=== PATIENT | female | born 1990 | race Caucasian/White ===

== ENCOUNTER → 2017-03-26 | Outpatient (CLI) | payer BC ==
[2017-03-26 09:58] LABS: ESTIMATED AVERAGE GLUCOSE 146 mg/dl; HA1C FLAG Normal (Normal)
[2017-03-26 10:00] LABS: THYROID STIMULATING HORMONE 2.11 uIu/ml (0.300-4.500)
--- NOTE | 2017-04-10 13:28 | CODING QUERY MEDICAL NECESSITY ---
SUPPORTING DIAGNOSIS NEEDED Dr. Trinh, A supporting diagnosis is required for the test/procedure performed on this patient in order for us to be reimbursed by the patient's insurance. Please provide a supporting diagnosis for the following test/procedure listed below next to the test name along with your signature. *If there is no additional diagnosis for this patient that would support the following test/procedure please document that below next to the test/procedure. Test(s)/Procedure(s) that require a supporting diagnosis: * ([id number]) VITAMIN D ASSAY DIAGNOSIS: DATE OF SERVICE: 03/26/17 Provider Signature: Date: Thank you Man [facility] Information Management Once completed, please kindly fax back to [phone] For questions please call [phone]
== END | disposition home or self-care (01) ==
LOC: C.LAB1850 08:05
PROVIDERS: ATTEND Internal Medicine Endocrinology, Diabetes & Metabolism
DX: E03.9 Hypothyroidism, unspecified (principal); R20.2 Paresthesia of skin; E10.9 Type 1 diabetes mellitus without complications

== ENCOUNTER → 2017-06-25 | Outpatient (CLI) | payer BC ==
[~2017-06-25] MED LIST: INSPMPHMLG; LEVO112T4 PO; MISC-836; MTR600X PO; OXYC-57 PO; PRENTAB26 PO
[2017-06-25 10:17] LABS: HEMOGLOBIN A1C 6.2 % (4.5-5.6)
== END | disposition home or self-care (01) ==
LOC: C.LAB1850 07:48
PROVIDERS: ATTEND Internal Medicine
DX: E03.9 Hypothyroidism, unspecified (principal); E10.9 Type 1 diabetes mellitus without complications; Z33.1 Pregnant state, incidental

== ENCOUNTER → 2017-07-17 | Outpatient (CLI) | payer BC ==
[2017-07-17 13:19] LABS: BASO % 0.4 %; BASO ABS # 0.03 K/uL (0-0.2); EOS % 1.7 %; EOS ABS # 0.14 K/uL (0-0.5); HEMATOCRIT 38.4 % (37-47); HEMOGLOBIN 13.6 g/dL (12.0-16.0); IG# 0.03 K/uL (0.00-0.02); LYMPH % 15.6 %; LYMPH ABS # 1.32 K/uL (1.2-3.4); MEAN CELL VOLUME 87.3 fL (80-100); MEAN CORPUSCULAR HEMOGLOBIN 30.9 pg (25-34); MEAN CORPUSCULAR HGB CONC 35.4 g/dl (32-36); MEAN PLATELET VOLUME 11.5 fL (7.4-10.4); MONO % 8.8 %; MONO ABS # 0.75 K/uL (0.11-0.59); NEUT % 73.1 %; NEUT ABS # 6.21 K/uL (1.4-6.5); PLATELET COUNT 256 K/uL (130-400); RED CELL DISTRIBUTION WIDTH CV 12.2 % (11.5-14.5); RED CELL DISTRIBUTION WIDTH SD 39.3 fL (36.4-46.3); WHITE BLOOD COUNT 8.48 K/uL (4.8-10.8)
== END | disposition home or self-care (01) ==
LOC: C.LAB1850 12:11
PROVIDERS: ATTEND Obstetrics & Gynecology
DX: O24.011 Pre-existing type 1 diabetes mellitus, in pregnancy, first trimester (principal)

== ENCOUNTER → 2017-08-14 | Outpatient (CLI) | payer BC ==
[2017-08-14 12:22] LABS: HEMOGLOBIN A1C 5.7 % (4.5-5.6)
== END | disposition home or self-care (01) ==
LOC: C.LAB1850 10:15
PROVIDERS: ATTEND Internal Medicine Endocrinology, Diabetes & Metabolism
DX: O99.281 Endocrine, nutritional and metabolic diseases complicating pregnancy, first trimester (principal); E03.9 Hypothyroidism, unspecified; O24.011 Pre-existing type 1 diabetes mellitus, in pregnancy, first trimester

== ENCOUNTER → 2017-08-18 | Outpatient (CLI) | payer BC | END | disposition home or self-care (01) | LOC: C.LAB1850 08:31 | PROVIDERS: ATTEND Obstetrics & Gynecology | DX: O24.912 Unspecified diabetes mellitus in pregnancy, second trimester (principal); Z3A.00 Weeks of gestation of pregnancy not specified ==

== ENCOUNTER → 2017-09-11 | Outpatient (CLI) | payer BC ==
[2017-09-11 13:33] LABS: HEMOGLOBIN A1C 5.7 % (4.5-5.6)
== END | disposition home or self-care (01) ==
LOC: C.LAB1850 09:35
PROVIDERS: ATTEND Obstetrics & Gynecology
DX: O99.282 Endocrine, nutritional and metabolic diseases complicating pregnancy, second trimester (principal); Z3A.00 Weeks of gestation of pregnancy not specified; E03.9 Hypothyroidism, unspecified; O24.011 Pre-existing type 1 diabetes mellitus, in pregnancy, first trimester; E10.9 Type 1 diabetes mellitus without complications

== ENCOUNTER → 2017-10-10 | Outpatient (CLI) | payer BC ==
[2017-10-11 08:25] LABS: HEMOGLOBIN A1C 5.8 % (4.5-5.6)
== END | disposition home or self-care (01) ==
LOC: C.LAB1850 17:07
PROVIDERS: ATTEND Obstetrics & Gynecology
DX: O24.012 Pre-existing type 1 diabetes mellitus, in pregnancy, second trimester (principal); O99.282 Endocrine, nutritional and metabolic diseases complicating pregnancy, second trimester

== ENCOUNTER → 2017-11-07 | Outpatient (CLI) | payer BC | END | disposition home or self-care (01) | LOC: C.LABSPEC 10:01 | PROVIDERS: ATTEND Obstetrics & Gynecology | DX: O99.283 Endocrine, nutritional and metabolic diseases complicating pregnancy, third trimester (principal) ==

== ENCOUNTER → 2017-11-07 | Outpatient (CLI) | payer BC ==
[2017-11-08 07:56] LABS: HEMOGLOBIN A1C 6.2 % (4.5-5.6)
== END | disposition home or self-care (01) ==
LOC: C.LAB1850 17:05
PROVIDERS: ATTEND Obstetrics & Gynecology
DX: O24.011 Pre-existing type 1 diabetes mellitus, in pregnancy, first trimester (principal); O99.282 Endocrine, nutritional and metabolic diseases complicating pregnancy, second trimester

== ENCOUNTER → 2018-01-23 | Outpatient (CLI) | payer BC ==
[2018-01-23 17:35] LABS: HEMATOCRIT 33.6 % (37-47); HEMOGLOBIN 10.7 g/dL (12.0-16.0)
== END | disposition home or self-care (01) ==
LOC: C.LAB1850 16:34
PROVIDERS: ATTEND Obstetrics & Gynecology
DX: O99.283 Endocrine, nutritional and metabolic diseases complicating pregnancy, third trimester (principal)

== ENCOUNTER → 2018-01-30 | Outpatient (CLI) | payer BC | END | disposition home or self-care (01) | LOC: C.LABSPEC 16:46 | PROVIDERS: ATTEND Obstetrics & Gynecology | DX: O24.13 Pre-existing type 2 diabetes mellitus, in the puerperium (principal) ==

== ENCOUNTER → 2018-02-02 | Outpatient (CLI) | payer BC ==
[~2018-02-02] MED LIST changes: -MISC-836; -MTR600X PO; -OXYC-57 PO
[2018-02-02 12:52] LABS: ALBUMIN 2.2 gm/dl (3.4-5.0); ALKALINE PHOSPHATASE 228 U/L (45-117); ALT/SGPT 47 U/L (12-78); AST/SGOT 37 U/L (15-37); BLOOD UREA NITROGEN 11 mg/dl (7-18); CALCIUM 9.1 mg/dl (8.5-10.1); CARBON DIOXIDE 21 mmol/L (21-32); CREATININE 0.64 mg/dl (0.60-1.20); GLUCOSE 81 mg/dl (70-99); POTASSIUM 3.7 mmol/L (3.5-5.1); SODIUM 139 mmol/L (136-145); TOTAL PROTEIN 6.7 gm/dl (6.4-8.2)
== END | disposition home or self-care (01) ==
LOC: C.LAB1850 10:23
PROVIDERS: ATTEND Obstetrics & Gynecology
DX: O99.713 Diseases of the skin and subcutaneous tissue complicating pregnancy, third trimester (principal)

== ENCOUNTER 2018-02-09 09:40 | Inpatient (IN) | payer BC, OTHER ==
[~2018-02-09] VITALS: Ht 167.6 cm; Wt 93.5 kg
[2018-02-09] VITALS (8 sets, daily range): BP systolic 116–139; BP diastolic 64–82; PULSE 78–93; TEMP 36.5–36.8; O2SAT 98–100; Ht 167.6 cm; Wt 93.5 kg
[~2018-02-09 09:40] MED LIST changes: +CEFAZOLIN IV 2,000 MG in SYRINGE 0 ML IV SCH; -INSPMPHMLG; -LEVO112T4 PO; -PRENTAB26 PO
[2018-02-09] MEDS ORDERED: PRENTAB26 PO (10:28)
[2018-02-09] MEDS ORDERED: INSPMPHMLG (10:28)
[2018-02-09] MEDS ORDERED: LEVO112T4 PO (10:28)
[2018-02-09] MEDS ORDERED: LACTATED RINGER'S 1000ML 1,000 ML IV SCH (10:56)
[2018-02-09] MEDS ORDERED: CITRIC ACID/SODIUM CITRATE 15 ML UDC PO ONE (11:00)
[2018-02-09 11:16] LABS: BASO % 0.3 %; BASO ABS # 0.03 K/uL (0-0.2); EOS % 3.8 %; EOS ABS # 0.35 K/uL (0-0.5); HEMATOCRIT 35.2 % (37-47); HEMOGLOBIN 11.5 g/dL (12.0-16.0); IG# 0.25 K/uL (0.00-0.02); LYMPH ABS # 1.11 K/uL (1.2-3.4); MEAN CELL VOLUME 81.7 fL (80-100); MEAN CORPUSCULAR HEMOGLOBIN 26.7 pg (25-34); MEAN CORPUSCULAR HGB CONC 32.7 g/dl (32-36); MEAN PLATELET VOLUME 12.5 fL (7.4-10.4); MONO % 8.6 %; NEUT % 72.6 %; NEUT ABS # 6.74 K/uL (1.4-6.5); PLATELET COUNT 197 K/uL (130-400); RED CELL DISTRIBUTION WIDTH CV 14.7 % (11.5-14.5); RED CELL DISTRIBUTION WIDTH SD 42.8 fL (36.4-46.3); WHITE BLOOD COUNT 9.28 K/uL (4.8-10.8)
[2018-02-09] MEDS ORDERED: GLUCOSE 10 TABS/TUBE PO PRN (11:30)
[2018-02-09] MEDS ORDERED: GLUCOSE 40% GEL 15 GM TUBE PO PRN (11:30)
[2018-02-09] MEDS ORDERED: DEXTROSE 50% 50 ML SYR IV PRN (11:30)
[2018-02-09] MEDS ORDERED: GLUCAGON FOR INJ 1 MG VIAL IM PRN (11:30)
[2018-02-09] MEDS ORDERED: INSULIN HUMAN LISPRO (humaLOG) 100 UNITS/ML VIAL SC PRN (11:30)
[2018-02-09] MEDS ORDERED: CARBOHYDRATES FOR HYPOGLYCEMIA PO PRN (11:30)
--- NOTE | 2018-02-09 11:53 | HISTORY & PHYSICAL EXAMINATION ---
DATE OF ADMISSION: 02/09/2018 PRINCIPAL DIAGNOSIS: Intrauterine at 37 and 3/7 weeks, cholestasis of and breech presentation. PROCEDURE: Primary low transverse section. HISTORY OF PRESENT ILLNESS: The patient is a 27-year-old 1, P0 white female, EDC of 02/27/2018, who presents for primary section for breech presentation and cholestasis of . She originally had been scheduled for the section at 39 weeks; however, she was experiencing intense itching at which point bile acids were drawn and they are elevated. By protocol, a cholestasis of increased the risk for stillborn and she also is a type 1 diabetic; therefore, because of the cholestasis of , will be proceed with the section at this time. The patient understands the risks of procedure. All questions were answered to her satisfaction and she is willing to proceed. The was complicated by hypothyroidism as well as type 1 diabetes. She has been insulin-dependent type 1 diabetic for 9 years. The is also complicated by a small VSD on the baby. PAST MEDICAL HISTORY: Significant for hypothyroidism, type 1 diabetes since 2008, polyglandular autoimmune syndrome, cholestasis of . PAST SURGICAL HISTORY: Microdiscectomy on her back. MEDICATIONS: Include levothyroxine 112 mcg daily, insulin by her insulin pump. ALLERGIES: SULFA MEDICATIONS. OBSTETRICAL AND GYNECOLOGICAL HISTORY: No history of PID, VD or herpes. Pap smears have been normal. Periods are regular. This is her first . HISTORY: Blood type is O positive. Antibody screen is negative. Rubella is immune. RPR is nonreactive. Hepatitis is negative. HIV is negative. GC and chlamydia are negative. Cystic fibrosis screening was not done. Quad screen is negative. Hemoglobin at 28 weeks was 10.7, hematocrit 33.6. Insulin requirements have decreased over the per the patient. 24-hour urine collections for protein and creatinine clearance have all been within normal limits. Growth scans monthly, most recent is 60th percentile. NSTs have also been reactive. These were started at 32 weeks. PHYSICAL EXAMINATION: VITAL SIGNS: She is afebrile. Vital signs are stable. LUNGS: Clear to auscultation. HEART: Regular rate and rhythm. No murmurs or gallops. ABDOMEN: Gravid and no hepatosplenomegaly or masses palpable. Estimated weight is 7 pounds. PELVIC: Cervix is 3 cm, 50% effaced, and high per Dr. Mendoza's exam in the office today. is in the breech presentation. EXTREMITIES: Without cyanosis or calf tenderness. She has a pruritic rash over her extremities and her abdomen. ASSESSMENT: A 27-year-old presenting for primary section because of breech presentation and cholestasis of at 37 and 3/7 weeks. Please see the orders for further directions.
[2018-02-09] MEDS ORDERED: EpHEDrine SULFATE INJ 50 MG/ML AMP IV PRN ×2 (12:00→14:00)
[2018-02-09] MEDS ORDERED: OXYTOCIN INJ 10 UNITS/ML VIAL ONE ×3 (12:02→13:24)
[2018-02-09] MEDS ORDERED: FENTANYL CITRATE INJ 50 MCG/1 ML 2 ML VIAL ONE (12:03)
[2018-02-09] MEDS ORDERED: MoRPHine SULFATE PF 1 MG/ML 10 ML AMP/VIAL ONE (12:03)
[2018-02-09] MEDS ORDERED: PHENYLEPHRINE 100MCG/ML 5ML SYR ONE (12:50)
[2018-02-09] MEDS ORDERED: ONDANSETRON INJ 2 MG/ML 2 ML VIAL ONE (13:17)
--- NOTE | 2018-02-09 13:34 | [facility] Post Operative Brief Note ---
Immediate Operative Summary Operative Date Feb 09, 2018. Pre-Operative Diagnosis 37 3/7 Weeks Gestation; Breech Presentation; Cholestasis of ; PUPPS; Type I Diabetic. Post-Operative Diagnosis Same as Preop Procedure(s) Performed Caesarean Section of Live Female @ [address] Lozano Spindle Plumber Surgeon(s) Dr. James Estimated Blood Loss 600 Findings See Below gravid uterus , nromal tubes & ovaries. Fluids (cc crystalloids) 1100 Specimens Cord Blood Placenta (Hold) Drains Denney to straight drainage Anesthesia Type Spinal Complication(s) none Disposition Accompanied Pt To Recover: yes Disposition: L&D
[2018-02-09] MEDS ORDERED: LANOLIN OINT EXT PRN (13:45)
[2018-02-09] MEDS ORDERED: MAGNESIUM HYDROXIDE SUSP 30 ML UDC PO PRN (13:45)
[2018-02-09] MEDS ORDERED: NALOXONE HCL INJ 1 MG in SODIUM CHLORIDE 0.9% 1000ML 1,000 ML IV PRN (13:47)
[2018-02-09] MEDS ORDERED: NALOXONE HCL INJ 0.08 MG in SYRINGE 1.8 ML IV PRN (13:47)
[2018-02-09] MEDS ORDERED: SODIUM CHLORIDE 0.9% 1000ML 1,000 ML IV PRN (13:47)
[2018-02-09] MEDS ORDERED: LACTATED RINGER'S 1000ML 500 ML IV PRN (13:47)
--- NOTE | 2018-02-09 13:49 | Anesthesiology Progress Note ---
Anesthesia Post Op Note Date & Time Feb 09, 2018 at 13:49 Notes Mental Status: alert / awake / arousable, participated in evaluation Pt Amnestic to Procedure: Yes Nausea / Vomiting: adequately controlled Pain: adequately controlled Airway Patency, RR, SpO2: stable & adequate BP & HR: stable & adequate Hydration State: stable & adequate Neuraxial Anesthesia: was administered, sensory block is resolving Anesthetic Complications: no major complications apparent
[2018-02-09] MEDS ORDERED: NO NARCOTICS OR SEDATIVES SCH (14:00)
[2018-02-09] MEDS ORDERED: MoRPHine SULFATE PF 1 MG/ML 10 ML AMP/VIAL INT SPINAL PRN (14:00)
[2018-02-09] MEDS ORDERED: NALOXONE HCL 0.4 MG/1 ML VIAL/CARP IV PRN (14:00)
[2018-02-09] MEDS ORDERED: DC INTRASPINAL MORPHINE SCH (14:00)
[2018-02-09] MEDS ORDERED: MoRPHine SULFATE 2 MG/ML CARP IV PRN (14:00)
[2018-02-09] MEDS ORDERED: ONDANSETRON INJ 2 MG/ML 2 ML VIAL IV PRN (14:00)
[2018-02-09] MEDS ORDERED: DiphenhydrAMINE HCL 50 MG/ML VIAL IV PRN (14:00)
[2018-02-09] MEDS ORDERED: HYDROCORTISONE 2.5% CR 30 GM TUBE EXT PRN (14:30)
--- NOTE | 2018-02-09 14:32 | OPERATIVE REPORT ---
DATE OF OPERATION: 02/09/2018 SURGEON: Esther Lozano MD DITCHING MACHINE OPERATOR: Maria De Jesus James, PGY-1. PREOPERATIVE DIAGNOSES: Intrauterine at 37 and 3/7 weeks, cholestasis of , persistent breech presentation and type 1 insulin-dependent diabetes mellitus. POSTOPERATIVE DIAGNOSES: Intrauterine at 37 and 3/7 weeks, cholestasis of , persistent breech presentation and type 1 insulin-dependent diabetes mellitus, delivery of a viable female infant, 9 pounds 4 ounces, Apgars 8 and 9. PROCEDURE: Primary low transverse section. BLOOD LOSS: 600 mL. ANESTHESIA: Subarachnoid block. HISTORY: The patient is a 27-year-old 1, P0 white female who had been complaining of persistent itching the week prior to her arrival here in labor and delivery. Initially, her rash looked like PUPPPs, but then she began to have a palm and soles of her feet itching. Bile acids were ordered and they were markedly elevated. Because she is over 37 weeks it was prudent to proceed with delivery, since the infant was in the persistent breech presentation, a section was done. The position of the baby was confirmed prior to going back to the section room. GROSS FINDINGS: Uterus is gravid and consistent with a term in size with a head in the left upper quadrant. The position of the baby is in single footling presentation. Uterus is gravid and consistent with a term in size. Bilateral ovaries and fallopian tubes are grossly normal. DESCRIPTION OF PROCEDURE: After the patient received adequate subarachnoid block, she was prepped and draped in usual sterile fashion. A low transverse skin incision was made with a scalpel and carried to the fascia with the same scalpel. The fascial incision was extended with Arnold scissors and the underlying rectus muscles bluntly and sharply dissected off the overlying fascia. The underlying peritoneum was then exposed and entered sharply with the Metzenbaum scissors. The bladder was then taken down off the anterior surface of the uterus and placed behind the bladder blade. The lower uterine segment was entered with a scalpel, was noted to be quite thin. This was extended transversely. Membranes were ruptured for clear fluid and the was still in a single footling breech presentation. After delivering the 1 foot, the extended left leg was then brought into the incision and the infant was delivered ultimately from a double footling breech presentation. The rest of the infant delivered with moderate fundal pressure. Mouth and nasopharynx were suctioned upon delivery of the head. A loose nuchal cord was reduced at that time. The cord was clamped and cut and the was handed off to Dr. Devine who was in attendance as wharfinger chief. The placenta was then expressed intact with a 3-vessel cord. The uterus exteriorized and covered with a clean lap sponge. The uterine cavity was then explored and found to be free of any placental tissue or membranes. The uterus was then closed in 2 layers in a running locking imbricating fashion. A small hematoma on the left side of the incision was secured with another [id number] stitch of 0 Monocryl. At this point, the hematoma did not increase in size and was stable. The posterior cul-de-sac was suctioned for a small amount of bloody fluid. The uterus was placed back inside the abdominal cavity. Incision was examined once more to make sure that hemostasis was satisfactory and it was. Gutters were cleared of some clot and fluid. The anterior cul-de-sac was irrigated with normal saline. The incision was examined one more time and this continued to have excellent hemostasis. The rectus muscles were then brought together in the midline with individual stitches of 0 Monocryl. The fascia was closed in a running fashion with Vicryl. The adipose layer was then irrigated with normal saline and then the skin edges were reapproximated using a subcuticular stitch of 4-0 Vicryl. Urine was clear at the end of the case. Mother and tolerated the procedure well. I attest to the content of the Intraoperative Record and any orders documented therein. Any exceptions are noted below. VIET
[2018-02-09] MEDS: KETOROLAC TROMETHAMINE 30 MG/ML VIAL IV. PRN ×2 (14:51→23:09)
[2018-02-09] MEDS: OXYTOCIN INJ 20 UNITS in LACTATED RINGER'S 1000ML 1,000 ML IV SCH ×2 (16:22→23:11)
[2018-02-09] MEDS: DOCUSATE SODIUM 100 MG CAP PO SCH (20:00)
[2018-02-09] MEDS ORDERED: PHARMACY GLYCEMIC MGMT CONSULT PRN (20:14)
[2018-02-09] MEDS: NALBUPHINE HCL INJ 10 MG/ML 1ML AMP IV PRN (20:24)
--- NOTE | 2018-02-09 20:44 | Pharmacy Progress Note ---
Glycemic: Assessment & Plan Date of Service Feb 09, 2018. Assessment & Plan Item Value Date Time Bedside Glucose 94 mg/dl H 02/09/18 1349 Bedside Glucose 88 mg/dl 02/09/18 1327 Bedside Glucose 70 mg/dl 02/09/18 1117 ASSESSMENT: Pt is a Type-I diabetic, S/P with her 1st baby. Pt reports she uses an Omnipod Humalog Insulin pump (with Dexcom Continuous Glucose Monitoring--CGM) * Total Insulin Dose (in recent weeks prior to delivery): ~ 110-120 units/day * Pt reports she's had more episodes of hypoglycemia in last couple weeks prior to delivery. * Total Insulin Dose (Pre-): ~30-35 units/day. * Project Officer is Dr. Alma Trinh. Of note: patient reports a recent change in her health insurance. She reports previously managed on Humalog insulin, HOWEVER formulary insulin is now NOVOLOG. PLAN: * Her insulin needs will be significantly reduced in the 48 hours post-. * I prefer to hold off restarting her insulin pump until closer to discharge to closely monitor her insulin needs. * Pending order: Give Lantus 5 units sub-q x 1 dose ONLY, once BSG 180mg/dL or ABOVE. * Ordered Novolog sub-q with a "loose" correction factor & carb ratio * Goal Range: Low 100 mg/dL - High 140 mg/dL * Correction Factor is 50mg/dL/unit * Carb Ratio is 1 unit Novolog for 20 grams CHO consumed. * Ordered BSG ACHS & 0200. I have discussed this plan of care with Dr. Rushing as well as the patient over the phone this evening. Pharmacy will continue to monitor patient daily and write orders per [facility] inpatient glycemic control protocol. Thanks. * Please note that the plan above was derived based on current level of insulin resistance and hospital stress. These recommendations are appropriate for inpatient admission only. Plan of care upon discharge will need to be reassessed to avoid potential outpatient hypo/hyperglycemia.
[2018-02-09] MEDS ORDERED: SENNA 8.6 MG TAB PO PRN (22:00)
[2018-02-09] MEDS: INSULIN ASPART 100 UNITS/ML 3 ML PEN SC SCH (23:12)
[2018-02-10] VITALS (12 sets, daily range): BP systolic 111–134; BP diastolic 59–75; PULSE 74–87; TEMP 36.8–37; O2SAT 97–100
[2018-02-10] MEDS: INSULIN ASPART 100 UNITS/ML 3 ML PEN SC SCH ×5 (02:10→21:33)
[2018-02-10] MEDS: NALBUPHINE HCL INJ 10 MG/ML 1ML AMP IV PRN (03:19)
[2018-02-10] MEDS: KETOROLAC TROMETHAMINE 30 MG/ML VIAL IV. PRN (05:22)
[2018-02-10] MEDS ORDERED: ONDANSETRON INJ 2 MG/ML 2 ML VIAL IV PRN (06:37)
[2018-02-10] MEDS ORDERED: KETOROLAC TROMETHAMINE 30 MG/ML VIAL IV. PRN (06:37)
[2018-02-10] MEDS ORDERED: DiphenhydrAMINE HCL 50 MG/ML VIAL IV PRN (06:37)
[2018-02-10] MEDS ORDERED: MEPERIDINE HCL 50 MG/ML CARP IV PRN ×2 (06:37)
[2018-02-10] MEDS ORDERED: PROMETHAZINE HCL INJ 25 MG in SODIUM CHLORIDE 0.9% 50ML 50 ML IV PRN (06:37)
[2018-02-10] MEDS ORDERED: ZOLPIDEM TARTRATE 5 MG TAB PO PRN (06:37)
[2018-02-10] MEDS ORDERED: OXYCODONE/ACETAMINOPHEN 5-325 TAB PO PRN (06:37)
--- NOTE | 2018-02-10 07:23 | Progress Note ---
Subjective Feb 10, 2018. Subjective conversation w/ patient Ambulation: limited ambulation Passing Gas: Yes Diet Tolerance: Regular Diet (will start today) Lochia: Moderate Feeding Type: Breast Feeding Pain: Improving Review of Systems Constitutional: No fever, No chills Respiratory: No shortness of breath Cardiac: No chest pain Objective Vital Signs Date Time Temp Pulse Resp B/P (MAP) Pulse Ox O2 Delivery O2 Flow Rate FiO2 02/10/18 06:40 16 100 02/10/18 05:39 16 98 02/10/18 04:40 16 98 02/10/18 03:29 16 100 02/10/18 03:15 36.9 87 16 111/59 (76) 100 Room Air 02/10/18 02:45 16 98 02/10/18 01:20 16 99 02/10/18 00:30 16 99 02/09/18 23:15 16 100 02/09/18 23:15 36.8 78 16 116/64 (81) 100 Room Air 02/09/18 23:15 100 Room Air 02/09/18 22:45 16 100 02/09/18 21:00 16 99 02/09/18 20:10 16 99 02/09/18 20:10 Room Air 02/09/18 20:10 36.7 93 16 136/82 (100) 99 Room Air 02/09/18 20:00 16 98 02/09/18 18:25 20 100 02/09/18 17:30 18 100 02/09/18 16:30 100 Room Air 02/09/18 16:30 20 100 02/09/18 16:30 36.5 87 20 139/79 (99) 100 Room Air Physical Exam General Appearance: WELL-APPEARING, NO APPARENT DISTRESS Respiratory/Chest: lungs clear, normal breath sounds, no respiratory distress Cardiovascular: regular rate, rhythm Abdomen: soft Fundus: Firm (at umbilicus) Incision Description: Clean, Dry & Intact Extremities: + pertinent finding (covered with SCDs) Laboratory Results Last 24 Hours Test 02/09/18 11:04 02/09/18 11:17 02/09/18 13:27 02/09/18 13:49 White Blood Count 9.28 K/uL Red Blood Count 4.31 M/uL Hemoglobin 11.5 g/dL Hematocrit 35.2 % Mean Corpuscular Volume 81.7 fL Mean Corpuscular Hemoglobin 26.7 pg Mean Corpuscular Hemoglobin Concent 32.7 g/dl Platelet Count 197 K/uL Mean Platelet Volume 12.5 fL Neutrophils (%) (Auto) 72.6 % Lymphocytes (%) (Auto) 12.0 % Monocytes (%) (Auto) 8.6 % Eosinophils (%) (Auto) 3.8 % Basophils (%) (Auto) 0.3 % Neutrophils # (Auto) 6.74 K/uL Lymphocytes # (Auto) 1.11 K/uL Monocytes # (Auto) 0.80 K/uL Eosinophils # (Auto) 0.35 K/uL Basophils # (Auto) 0.03 K/uL RDW Standard Deviation 42.8 fL RDW Coefficient of Variation 14.7 % Immature Granulocyte % (Auto) 2.7 % Immature Granulocyte # (Auto) 0.25 K/uL Bedside Glucose 70 mg/dl 88 mg/dl 94 mg/dl Test 02/09/18 20:36 02/09/18 22:28 02/10/18 02:01 02/10/18 06:00 Bedside Glucose 138 mg/dl 145 mg/dl 153 mg/dl Medications Current Inpatient Medications Medications (Trade) Dose Ordered Sig/Raphael Route Start Time Stop Time Status Last Admin Dose Admin Levothyroxine Sodium (Synthroid Tab) 112 mcg DAILYBB PO 02/10/18 07:30 03/12/18 07:29 Glucose (Glucose 40% Gel) 15-30 GRAMS 15 GRAMS... UD PRN PO 02/09/18 11:30 03/11/18 11:29 Glucose (Glucose Chew Tab) 4-8 Tablets 4 Tabl... UD PRN PO 02/09/18 11:30 03/11/18 11:29 Glucagon (Glucagon Inj) 1 mg UD PRN IM 02/09/18 11:30 03/11/18 11:29 Dextrose (Dextrose 50% 50ML Syringe) 25-50ML 25ML FOR ... UD PRN IV 02/09/18 11:30 03/11/18 11:29 Carbohydrates (Carbohydrates For Hypoglycemia) 15-30 GRAMS 15 grams if BSG 54-69... UD PRN PO 02/09/18 11:30 03/11/18 11:29 Ketorolac Tromethamine (Toradol Inj) 30 mg Q6H PRN IV. 02/10/18 06:37 02/15/18 06:36 Meperidine HCl (Demerol Inj) 50 mg Q4H PRN IV 02/10/18 06:37 02/24/18 06:36 Meperidine HCl (Demerol Inj) 75 mg Q4H PRN IV 02/10/18 06:37 02/24/18 06:36 Oxycodone/ Acetaminophen (Percocet 5-325mg Tab) 1 tab Q4H PRN PO 02/10/18 06:37 02/24/18 06:36 Oxycodone/ Acetaminophen (Percocet 5-325mg Tab) 2 tab Q4H PRN PO 02/10/18 06:37 02/24/18 06:36 Ibuprofen (Motrin Tab) 600 mg Q4H PRN PO 02/09/18 13:45 03/11/18 13:44 Promethazine HCl 25 mg/Sodium Chloride 51 ml @ 204 mls/hr Q4H PRN IV 02/10/18 06:37 03/12/18 06:36 Ondansetron HCl (Zofran Inj) 4 mg Q4H PRN IV 02/10/18 06:37 03/12/18 06:36 Prenat Multivit/ [place]/Iron/Folic Ac ( Vitamin Tab) 1 tab DAILY PO 02/10/18 08:00 03/12/18 07:59 Bisacodyl (Dulcolax Tab) 5 mg HS ONCE PO 02/10/18 22:00 02/10/18 22:01 Docusate Sodium (coLACE CAP) 100 mg BID PO 02/09/18 20:00 03/11/18 19:59 Magnesium Hydroxide (Milk Of Magnesia Susp) 30 ml HS PRN PO 02/09/18 13:45 03/11/18 13:44 Lanolin (Lanolin Oint) PRN PRN EXT 02/09/18 13:45 03/11/18 13:44 Zolpidem Tartrate (Ambien Tab) 5 mg HSZ PRN PO 02/10/18 06:37 03/12/18 06:36 Diphenhydramine HCl (Benadryl Cap) 50 mg QID PRN PO 02/10/18 06:37 03/12/18 06:36 Diphenhydramine HCl (Benadryl Inj) 25 mg QID PRN IV 02/10/18 06:37 03/12/18 06:36 Senna (Senokot Tab) 17.2 mg HS PRN PO 02/09/18 22:00 03/11/18 21:59 Hydrocortisone (Hydrocortisone 2.5% Crm) 1 appln Q6 PRN EXT 02/09/18 14:30 03/11/18 14:29 Miscellaneous Information (Consult Glycemic Management Pharmacy) 1 ea UD PRN N/A 02/09/18 20:14 03/11/18 20:13 Insulin Aspart (novoLOG ASPART) SLIDING SCALE ACHS SC 02/09/18 22:00 03/11/18 21:59 02/09/18 23:12 1 UNITS Insulin Aspart (novoLOG ASPART) SLIDING SCALE DAILY@0200 [place] 02/10/18 02:00 03/12/18 01:59 02/10/18 02:10 1 UNITS Miscellaneous Information (Pending Order) 1 ea 0200,0730,1130,1645,2200 N/A 02/09/18 22:00 03/11/18 21:59 Assessment and Plan Post-Op Day#: 1 Continue Routine Care: Resident Physician Supervision Note: I was present with Dr. James during the history and exam. I discussed the case with the resident and agree with the findings and plan as documented in the note. Any exceptions or clarifications are listed here: [None] Documented By: Esther Mills Marni Analgesia prn Escalate diet as needed Ambulation encouraged Endocrine consult for insulin pump use
[2018-02-10] MEDS: LEVOTHYROXINE 112 MCG TAB PO SCH (08:03)
[2018-02-10] MEDS: DOCUSATE SODIUM 100 MG CAP PO SCH ×2 (09:03→19:38)
[2018-02-10] MEDS: PRENATAL VITAMIN TAB PO SCH (09:03)
[2018-02-10] MEDS: OXYCODONE/ACETAMINOPHEN 5-325 TAB PO PRN ×4 (09:04→21:57)
[2018-02-10 09:20] LABS: HEMATOCRIT 26.8 % (37-47); HEMOGLOBIN 8.7 g/dL (12.0-16.0)
[2018-02-10] MEDS ORDERED: LANTUS PER UNIT CHARGE SQ ONE ×2 (11:30→21:00)
--- NOTE | 2018-02-10 13:13 | Pharmacy Progress Note ---
Pharmacy Glycemic Short Note 2 Date of Service Feb 10, 2018. OUTPATIENT ANTIDIABETIC REGIMEN: * Omnipod Humalog pump -- changing to Novolog d/t recent insurance change * HbA1c: 6.6% (01/09/18) ASSESSMENT: Pt is a Type-I diabetic, S/P with her 1st baby. Pt reports she uses an Omnipod Humalog Insulin pump (with Dexcom Continuous Glucose Monitoring--CGM) * Total Insulin Dose (in recent weeks prior to delivery): ~ 110-120 units/day * Pt reports she's had more episodes of hypoglycemia in last couple weeks prior to delivery. * Total Insulin Dose (Pre-): ~30-35 units/day. * Sprinkler Irrigation Equipment Mechanic is Dr. Alma Trinh. Of note: patient reports a recent change in her health insurance. She reports previously managed on Humalog insulin, HOWEVER formulary insulin is now NOVOLOG. PLAN: * Prefer to hold off restarting her insulin pump until closer to discharge to closely monitor her insulin needs. * Expect needs to decrease dramatically post- * BSG pre-lunch was 219mg/dL, so will initiate SQ regimen at this time. * Lantus 10 units SQ x1. Will supplement tonight if needed and re-eval dose tomorrow morning. * Novolog correctional/prandial coverage ACHS, based on pre- insulin requirements: * Goal Range: Low 100 mg/dL - High 140 mg/dL * Correction Factor is 35 mg/dL/unit * Carb Ratio is 1 unit Novolog for 15 grams CHO consumed. * Ordered BSG ACHS & 0200 --> CF 50mg/dL/unit, CR 1:20 for 0200 check. PLAN FOR DISCHARGE: * Patient is managed by Dr Alma Trinh as an outpatient. I have left a message with their office to discuss pump setting changes for discharge. Will await further instruction from them. * Recommend close f/u after discharge until insulin needs post- are clear. Pharmacy will continue to monitor patient daily and write orders per [facility] inpatient glycemic control protocol. Thanks. * Please note that the plan above was derived based on current level of insulin resistance and hospital stress. These recommendations are appropriate for inpatient admission only. Plan of care upon discharge will need to be reassessed to avoid potential outpatient hypo/hyperglycemia.
[2018-02-10] MEDS: IBUPROFEN 600 MG TAB PO PRN ×3 (13:41→21:56)
[2018-02-10] MEDS: SIMETHICONE 80 MG CHEW PO SCH ×2 (17:07→21:34)
[2018-02-10] MEDS ORDERED: NURSING VERBAL MED ORDER ONE (21:45)
[2018-02-10] MEDS ORDERED: BISACODYL 5 MG TABEC PO ONE (22:00)
[2018-02-11] MEDS: INSULIN ASPART 100 UNITS/ML 3 ML PEN SC SCH ×2 (02:04→08:37)
[2018-02-11] MEDS: IBUPROFEN 600 MG TAB PO PRN ×5 (03:27→23:51)
[2018-02-11] MEDS: OXYCODONE/ACETAMINOPHEN 5-325 TAB PO PRN ×5 (03:27→23:52)
[2018-02-11 06:51] LABS: BASO % 0.4 %; BASO ABS # 0.03 K/uL (0-0.2); EOS % 2.9 %; EOS ABS # 0.22 K/uL (0-0.5); HEMATOCRIT 26.4 % (37-47); HEMOGLOBIN 8.4 g/dL (12.0-16.0); LYMPH % 17.3 %; LYMPH ABS # 1.31 K/uL (1.2-3.4); MEAN CELL VOLUME 83.3 fL (80-100); MEAN CORPUSCULAR HEMOGLOBIN 26.5 pg (25-34); MEAN CORPUSCULAR HGB CONC 31.8 g/dl (32-36); MEAN PLATELET VOLUME 12.2 fL (7.4-10.4); MONO % 11.6 %; MONO ABS # 0.88 K/uL (0.11-0.59); NEUT % 66.5 %; NEUT ABS # 5.04 K/uL (1.4-6.5); PLATELET COUNT 174 K/uL (130-400); RED CELL DISTRIBUTION WIDTH CV 15.6 % (11.5-14.5); RED CELL DISTRIBUTION WIDTH SD 45.3 fL (36.4-46.3); WHITE BLOOD COUNT 7.58 K/uL (4.8-10.8)
--- NOTE | 2018-02-11 07:12 | Progress Note ---
Subjective Feb 11, 2018. Subjective conversation w/ patient Ambulation: limited ambulation Passing Gas: Yes Diet Tolerance: Regular Diet Lochia: Moderate Pain: Improving Comment: Blood glucose via continuous monitoring is 80 today before breakfast. Endocrine consult on board. Review of Systems Constitutional: No fever, No chills Respiratory: No shortness of breath Cardiac: No chest pain, No palpitations Abdomen: No nausea, No vomiting Female : No dysuria Objective Vital Signs Date Time Temp Pulse Resp B/P (MAP) Pulse Ox O2 Delivery O2 Flow Rate FiO2 02/10/18 23:20 100 Room Air 02/10/18 23:20 36.9 74 16 134/68 (90) 100 Room Air 02/10/18 15:30 36.8 84 18 132/75 (94) 97 Room Air 02/10/18 15:30 97 Room Air 02/10/18 11:45 37.0 82 16 126/75 (92) 99 Room Air 02/10/18 08:00 36.8 74 16 119/63 (81) 98 Room Air Physical Exam General Appearance: WELL-APPEARING, NO APPARENT DISTRESS Respiratory/Chest: normal breath sounds, no respiratory distress Cardiovascular: regular rate, rhythm Abdomen: soft Fundus: Firm (at umbilicus) Incision Description: Clean, Dry & Intact Extremities: no calf tenderness Laboratory Results Last 24 Hours Test 02/10/18 08:07 02/10/18 09:05 02/10/18 11:09 02/10/18 11:11 Bedside Glucose 137 mg/dl 249 mg/dl 252 mg/dl Hemoglobin 8.7 g/dL Hematocrit 26.8 % Test 02/10/18 12:20 02/10/18 14:23 02/10/18 17:53 02/10/18 21:30 Bedside Glucose 219 mg/dl 222 mg/dl 198 mg/dl 211 mg/dl Test 02/11/18 01:50 02/11/18 06:32 Bedside Glucose 178 mg/dl White Blood Count 7.58 K/uL Red Blood Count 3.17 M/uL Hemoglobin 8.4 g/dL Hematocrit 26.4 % Mean Corpuscular Volume 83.3 fL Mean Corpuscular Hemoglobin 26.5 pg Mean Corpuscular Hemoglobin Concent 31.8 g/dl Platelet Count 174 K/uL Mean Platelet Volume 12.2 fL Neutrophils (%) (Auto) 66.5 % Lymphocytes (%) (Auto) 17.3 % Monocytes (%) (Auto) 11.6 % Eosinophils (%) (Auto) 2.9 % Basophils (%) (Auto) 0.4 % Neutrophils # (Auto) 5.04 K/uL Lymphocytes # (Auto) 1.31 K/uL Monocytes # (Auto) 0.88 K/uL Eosinophils # (Auto) 0.22 K/uL Basophils # (Auto) 0.03 K/uL RDW Standard Deviation 45.3 fL RDW Coefficient of Variation 15.6 % Immature Granulocyte % (Auto) 1.3 % Immature Granulocyte # (Auto) 0.10 K/uL Medications Current Inpatient Medications Medications (Trade) Dose Ordered Sig/Raphael Route Start Time Stop Time Status Last Admin Dose Admin Levothyroxine Sodium (Synthroid Tab) 112 mcg DAILYBB PO 02/10/18 07:30 03/12/18 07:29 02/10/18 08:03 112 MCG Glucose (Glucose 40% Gel) 15-30 GRAMS 15 GRAMS... UD PRN PO 02/09/18 11:30 03/11/18 11:29 Glucose (Glucose Chew Tab) 4-8 Tablets 4 Tabl... UD PRN PO 02/09/18 11:30 03/11/18 11:29 Glucagon (Glucagon Inj) 1 mg UD PRN IM 02/09/18 11:30 03/11/18 11:29 Dextrose (Dextrose 50% 50ML Syringe) 25-50ML 25ML FOR ... UD PRN IV 02/09/18 11:30 03/11/18 11:29 Carbohydrates (Carbohydrates For Hypoglycemia) 15-30 GRAMS 15 grams if BSG 54-69... UD PRN PO 02/09/18 11:30 03/11/18 11:29 Ketorolac Tromethamine (Toradol Inj) 30 mg Q6H PRN IV. 02/10/18 06:37 02/15/18 06:36 Meperidine HCl (Demerol Inj) 50 mg Q4H PRN IV 02/10/18 06:37 02/24/18 06:36 Meperidine HCl (Demerol Inj) 75 mg Q4H PRN IV 02/10/18 06:37 02/24/18 06:36 Oxycodone/ Acetaminophen (Percocet 5-325mg Tab) 1 tab Q4H PRN PO 02/10/18 06:37 02/24/18 06:36 02/11/18 03:27 1 TAB Oxycodone/ Acetaminophen (Percocet 5-325mg Tab) 2 tab Q4H PRN PO 02/10/18 06:37 02/24/18 06:36 Ibuprofen (Motrin Tab) 600 mg Q4H PRN PO 02/09/18 13:45 03/11/18 13:44 02/11/18 03:27 600 MG Promethazine HCl 25 mg/Sodium Chloride 51 ml @ 204 mls/hr Q4H PRN IV 02/10/18 06:37 03/12/18 06:36 Ondansetron HCl (Zofran Inj) 4 mg Q4H PRN IV 02/10/18 06:37 03/12/18 06:36 Prenat Multivit/ [place]/Iron/Folic Ac ( Vitamin Tab) 1 tab DAILY PO 02/10/18 08:00 03/12/18 07:59 02/10/18 09:03 1 TAB Docusate Sodium (coLACE CAP) 100 mg BID PO 02/09/18 20:00 03/11/18 19:59 02/10/18 19:38 100 MG Magnesium Hydroxide (Milk Of Magnesia Susp) 30 ml HS PRN PO 02/09/18 13:45 03/11/18 13:44 Lanolin (Lanolin Oint) PRN PRN EXT 02/09/18 13:45 03/11/18 13:44 Zolpidem Tartrate (Ambien Tab) 5 mg HSZ PRN PO 02/10/18 06:37 03/12/18 06:36 Diphenhydramine HCl (Benadryl Cap) 50 mg QID PRN PO 02/10/18 06:37 03/12/18 06:36 02/10/18 09:06 50 MG Diphenhydramine HCl (Benadryl Inj) 25 mg QID PRN IV 02/10/18 06:37 03/12/18 06:36 Senna (Senokot Tab) 17.2 mg HS PRN PO 02/09/18 22:00 03/11/18 21:59 Hydrocortisone (Hydrocortisone 2.5% Crm) 1 appln Q6 PRN EXT 02/09/18 14:30 03/11/18 14:29 Miscellaneous Information (Consult Glycemic Management Pharmacy) 1 ea UD PRN N/A 02/09/18 20:14 03/11/18 20:13 Insulin Aspart (novoLOG ASPART) SLIDING SCALE ACHS SC 02/09/18 22:00 03/11/18 21:59 02/10/18 21:33 3 UNITS Insulin Aspart (novoLOG ASPART) SLIDING SCALE DAILY@0200 [place] 02/10/18 02:00 03/12/18 01:59 02/11/18 02:04 2 UNITS Simethicone (Mylicon Chew Tab) 80 mg ACHS PO 02/10/18 16:45 03/12/18 16:44 02/10/18 21:34 80 MG Assessment and Plan Post-Op Day#: 2 Continue Routine Care: Continue to monitor blood glucose. Endocrine on board. Analgesia PRN Escalate diet as needed Ambulation encouraged Resident Physician Supervision Note: I interviewed and examined the patient. Discussed with Dr. Pretty and agree with findings and plan as documented in the note. Any exceptions or clarifications are listed here: [None] Documented By: Eladio Mendoza
[2018-02-11] MEDS: LEVOTHYROXINE 112 MCG TAB PO SCH (07:45)
[2018-02-11 08:01] VITALS: BP 135/87; PULSE 77; TEMP 36.7; O2SAT 98
[2018-02-11] MEDS: DOCUSATE SODIUM 100 MG CAP PO SCH ×2 (08:38→20:03)
[2018-02-11] MEDS: PRENATAL VITAMIN TAB PO SCH (08:38)
[2018-02-11] MEDS: SIMETHICONE 80 MG CHEW PO SCH ×4 (08:39→22:11)
[2018-02-11] MEDS ORDERED: MISC-836 (09:42)
--- NOTE | 2018-02-11 11:00 | Pharmacy Progress Note ---
Pharmacy Glycemic Short Note 2 Date of Service Feb 11, 2018. OUTPATIENT ANTIDIABETIC REGIMEN: * Omnipod Humalog pump -- changing to Novolog d/t recent insurance change * HbA1c: 6.6% (01/09/18) ASSESSMENT: Pt is a Type-I diabetic, S/P with her 1st baby. Pt reports she uses an Omnipod Humalog Insulin pump (with Dexcom Continuous Glucose Monitoring--CGM) * Total Insulin Dose (in recent weeks prior to delivery): ~ 110-120 units/day * Pt reports she's had more episodes of hypoglycemia in last couple weeks prior to delivery. * Total Insulin Dose (Pre-): ~30-35 units/day. * Ict Systems Test Engineer is Dr. Alma Trinh. Of note: patient reports a recent change in her health insurance. She reports previously managed on Humalog insulin, HOWEVER formulary insulin is now NOVOLOG. PLAN: * Patient was managed with SQ insulin post- day #1, with some hyperglycemia in the afternoon/evening. * SQ insulin was initiated very conservatively until post- needs were more apparent, in an effort to eliminate the risk of hypoglycemia. * BSG looks good this morning, so will re-start insulin pump rather than give additional SQ basal insulin. * Spoke with ARIANA Covarrubias [facility], who helps manage patient's pump as an outpatient. * Plan is to restart Humalog insulin pump at this time with the following settings: * Basal rate: 0.65 units/hr * Correction factor: 45 mg/dL/unit * Carb ratio: 1 unit per 15 gm CHO consumed * Patient was seen in her room and this plan was discussed. Patient has all necessary supplies to resume insulin pump and she is in agreement with plan. PLAN FOR DISCHARGE: * Patient is managed by Dr Alma Trinh (and ARIANA Covarrubias) as an outpatient. * Patient will resume pump as outlined above. Angela will reach out to patient tomorrow to discuss post-discharge plans. Pharmacy will continue to monitor patient daily and write orders per [facility] inpatient glycemic control protocol. Thanks. * Please note that the plan above was derived based on current level of insulin resistance and hospital stress. These recommendations are appropriate for inpatient admission only. Plan of care upon discharge will need to be reassessed to avoid potential outpatient hypo/hyperglycemia.
[2018-02-11 15:55] VITALS: BP 129/75; PULSE 75; TEMP 37
[2018-02-12 00:35] VITALS: BP 134/74; TEMP 36.9
[2018-02-12 04:25] VITALS: BP 124/73
[2018-02-12] MEDS: IBUPROFEN 600 MG TAB PO PRN ×2 (05:38→10:44)
[2018-02-12] MEDS: OXYCODONE/ACETAMINOPHEN 5-325 TAB PO PRN (05:39)
--- NOTE | 2018-02-12 06:42 | Progress Note ---
Subjective Feb 12, 2018. Subjective conversation w/ patient Ambulation: ambulating normally Voiding: no voiding problems Passing Gas: Yes Diet Tolerance: Regular Diet Lochia: Moderate Pain: Improving Review of Systems Constitutional: No fever Respiratory: No shortness of breath Cardiac: No chest pain, No palpitations Abdomen: No nausea, No vomiting Objective Vital Signs Date Time Temp Pulse Resp B/P (MAP) Pulse Ox O2 Delivery O2 Flow Rate FiO2 02/12/18 04:25 124/73 (90) 02/12/18 00:35 36.9 18 134/74 (94) Room Air 02/12/18 00:35 Room Air 02/11/18 15:55 37.0 75 18 129/75 (93) Room Air 02/11/18 15:55 Room Air 02/11/18 08:01 36.7 77 18 135/87 (103) 98 Room Air 02/11/18 08:00 Room Air Physical Exam General Appearance: WELL-APPEARING, NO APPARENT DISTRESS Respiratory/Chest: normal breath sounds, no respiratory distress Cardiovascular: regular rate, rhythm Abdomen: soft Fundus: Firm (at umbilicus) Incision Description: Clean, Dry & Intact Laboratory Results Last 24 Hours Test 02/11/18 07:59 02/11/18 12:04 Bedside Glucose 109 mg/dl 155 mg/dl Medications Current Inpatient Medications Medications (Trade) Dose Ordered Sig/Raphael Route Start Time Stop Time Status Last Admin Dose Admin Levothyroxine Sodium (Synthroid Tab) 112 mcg DAILYBB PO 02/10/18 07:30 03/12/18 07:29 02/11/18 07:45 112 MCG Glucose (Glucose 40% Gel) 15-30 GRAMS 15 GRAMS... UD PRN PO 02/09/18 11:30 03/11/18 11:29 Glucose (Glucose Chew Tab) 4-8 Tablets 4 Tabl... UD PRN PO 02/09/18 11:30 03/11/18 11:29 Glucagon (Glucagon Inj) 1 mg UD PRN IM 02/09/18 11:30 03/11/18 11:29 Dextrose (Dextrose 50% 50ML Syringe) 25-50ML 25ML FOR ... UD PRN IV 02/09/18 11:30 03/11/18 11:29 Carbohydrates (Carbohydrates For Hypoglycemia) 15-30 GRAMS 15 grams if BSG 54-69... UD PRN PO 02/09/18 11:30 03/11/18 11:29 Ketorolac Tromethamine (Toradol Inj) 30 mg Q6H PRN IV. 02/10/18 06:37 02/15/18 06:36 Meperidine HCl (Demerol Inj) 50 mg Q4H PRN IV 02/10/18 06:37 02/24/18 06:36 Meperidine HCl (Demerol Inj) 75 mg Q4H PRN IV 02/10/18 06:37 02/24/18 06:36 Oxycodone/ Acetaminophen (Percocet 5-325mg Tab) 1 tab Q4H PRN PO 02/10/18 06:37 02/24/18 06:36 02/12/18 05:39 1 TAB Oxycodone/ Acetaminophen (Percocet 5-325mg Tab) 2 tab Q4H PRN PO 02/10/18 06:37 02/24/18 06:36 Ibuprofen (Motrin Tab) 600 mg Q4H PRN PO 02/09/18 13:45 03/11/18 13:44 02/12/18 05:38 600 MG Promethazine HCl 25 mg/Sodium Chloride 51 ml @ 204 mls/hr Q4H PRN IV 02/10/18 06:37 03/12/18 06:36 Ondansetron HCl (Zofran Inj) 4 mg Q4H PRN IV 02/10/18 06:37 03/12/18 06:36 Prenat Multivit/ Land Checker/Iron/Folic Ac ( Vitamin Tab) 1 tab DAILY PO 02/10/18 08:00 03/12/18 07:59 02/11/18 08:38 1 TAB Docusate Sodium (coLACE CAP) 100 mg BID PO 02/09/18 20:00 03/11/18 19:59 02/11/18 20:03 100 MG Magnesium Hydroxide (Milk Of Magnesia Susp) 30 ml HS PRN PO 02/09/18 13:45 03/11/18 13:44 Lanolin (Lanolin Oint) PRN PRN EXT 02/09/18 13:45 03/11/18 13:44 Zolpidem Tartrate (Ambien Tab) 5 mg HSZ PRN PO 02/10/18 06:37 03/12/18 06:36 Diphenhydramine HCl (Benadryl Cap) 50 mg QID PRN PO 02/10/18 06:37 03/12/18 06:36 02/10/18 09:06 50 MG Diphenhydramine HCl (Benadryl Inj) 25 mg QID PRN IV 02/10/18 06:37 03/12/18 06:36 Senna (Senokot Tab) 17.2 mg HS PRN PO 02/09/18 22:00 03/11/18 21:59 Hydrocortisone (Hydrocortisone 2.5% Crm) 1 appln Q6 PRN EXT 02/09/18 14:30 03/11/18 14:29 Miscellaneous Information (Consult Glycemic Management Pharmacy) 1 ea UD PRN N/A 02/09/18 20:14 03/11/18 20:13 Simethicone (Mylicon Chew Tab) 80 mg ACHS PO 02/10/18 16:45 03/12/18 16:44 02/11/18 22:11 80 MG Insulin Human Lispro (HumaLOG INSULIN PUMP) 1 ea ACHS N/A 02/11/18 11:30 03/13/18 11:29 02/11/18 18:15 1 EA Assessment and Plan Post-Op Day#: 3 Continue Routine Care: Analgesia PRN Escalate diet as needed Ambulation encouraged Discharge today. Resident Physician Supervision Note: I interviewed and examined the patient. Discussed with Dr. James and agree with findings and plan as documented in the note. Any exceptions or clarifications are listed here: [None] Documented By: Marie Hirsch
--- NOTE | 2018-02-12 06:49 | Discharge Instructions ---
Discharge Instructions Date of Service Feb 12, 2018. Admission Reason for Admission: -Breech Presentation Discharge Discharge Diagnosis / Problem: Caesarean delivery Discharge Goals Goal(s): Routine recovery after Medications Continue Dispensed Medications: supercream, dermaplast, tucks, lansinoh Activity Recommendations Activity Limitations: per Instructions/Follow-up section . Instructions / Follow-Up Instructions / Follow-Up ACTIVITY RECOMMENDATIONS: * Gradual return to full activity over the next 2-3 weeks. * No lifting - nothing heavier than baby over the next 2-3 weeks. * Do not engage in vigorous exercise, sexual activity or sports until cleared by your physician. * Do not drive or operate any motorized equipment until cleared by your physician. * You may shower/bathe daily. MEDICATIONS: For discomfort or pain, you may use Acetaminophen (Tylenol), Ibuprofen (Advil), or Naproxen (Aleve) following the package directions. For constipation you may use Colace following the package directions. BREAST CARE: If you are not breast feeding: * Wear a supportive bra 24 hours a day for one to two weeks. * Avoid stimulating your breasts and nipples as much as possible during the first few weeks after delivery. * When taking a shower, have the warm water hit your back, not breasts. * When your breasts feel full, apply ice packs. Usually three to four times a day helps ease the discomfort. * Take a mild pain medication (Tylenol / Motrin) when you are uncomfortable. If breast feeding: * Use breast milk to lubricate nipples. Lansinoh cream may be used for sore nipples. You do not need to remove cream prior to breast feeding. If using a different brand of cream, check the label for directions regarding removal of cream prior to nursing. * Wear a supportive bra. * If having problems with breasts or breast feeding, call a travel sales consultant or your health care provider. SPECIAL CARE INSTRUCTIONS: When you are discharged from the hospital, it is important for you to follow the instructions listed below: * During the first week at home, you should be able to care for yourself and your baby. In addition, the usual light household activities are encouraged. * Limit your activities to the way you feel. Do not try to clean the house or move furniture. Be sensible. * If you actively engage in sports and have done so up until the time of your delivery, you may resume these activities as soon as you feel able. This may take up to one month or even longer. Use good judgment. * Continue to take your vitamins for at least six weeks after the of your baby. * Your diet need not be limited unless you were on a special diet before your delivery. Breast-feeding mothers need around 2500 calories per day and at least 64-80 ounces of fluid per day (8 to 10 glasses). * You should eat foods from the four major food groups. Crash diets or fad diets are to be avoided. Eating lean meats, fresh fruits and vegetables, low-fat dairy products, high fiber foods and a regular exercise program, will help you get back to your pre- weight without putting your health at risk. * Constipation is sometimes a problem after delivery. Take a mild laxative as needed. If breast feeding, Milk of Magnesia is acceptable to use. You may use a suppository or Fleets enema. * A daily shower or tub bath is suggested. Wash incision daily with warm soapy water and pat dry. It doesn't need to be covered unless drainage is present. * A bloody vaginal discharge will usually continue until around four weeks . A small amount of bleeding may continue for as long as six weeks. Vaginal discharge changes from the bright red bleeding after delivery to pink then brownish and finally yellowish-pink before becoming white and disappearing. * Bleeding may increase with activity. Your first period may come in 4-8 weeks. If you are breast feeding, your period may be delayed even longer. * [place] (sex) can begin whenever both you and your partner feel comfortable and do not have any form of genital infection. It is recommended that you wait at least six weeks for internal and external healing to occur. If you have questions, please talk to your health care practitioner. A condom should be used to prevent infection and . * Foreplay, gentle intercourse and lubrication is very important the first several times to prevent pain. A water-based lubricant such as K-Y jelly or Astroglide may be used. * If you have RH negative blood and your baby is RH positive, you will receive RHOGAM by injection prior to discharge. The nurse will give you a card to keep with you that has the date and place that you received RHOGAM after delivery. * During your care, you had a Rubella screen done to check for the presence of rubella antibodies in your blood. If your test was negative, you will receive a Rubella vaccine prior to discharge. This vaccine may cause a fever, soreness at the injection site and flu-like symptoms. If these symptoms persist, notify your health care practitioner. is not advised for one month after a Rubella vaccine. * Verbalizes understanding of car seat law as reviewed with patient nursing. * Car Seat hand-out given and reviewed with patient by nursing. * Shaken baby information reviewed with patient by nursing. Call you doctor if: * Heavy bleeding (saturating several pads an hour) or passing clots the size of your fist. * A fever >101 degrees F (38.3 degrees C) on two occasions four hours apart and /or chills. * Unusual pain in the pelvic or vaginal areas. * Call the doctor for any increased redness, drainage or swelling around the incision and any pain unrelieved by prescribed pain medication. * "Baby Blues" lasting longer than two weeks. If you have any questions or concerns, call your health care practitioner at . FOLLOW UP VISIT: * Please call the office at to schedule a 6 week examination. It is important you keep this appointment. It is important for you to make arrangements for either yearly or twice yearly check-ups thereafter. Current Hospital Diet Patient's current hospital diet: Diabetes Type 1 Diet Discharge Diet Recommended Diet: Diabetes Type 1 Diet Procedures Procedures Performed: Caesarean Section of Live Female Infant @ 1257 Pending Studies Studies pending at discharge: no Laboratory Results Hemoglobin A1c Test 01/09/18 15:10 Range/Units Estimated Average Glucose 143 mg/dl Hemoglobin A1c 6.6 H 4.5-5.6 % Medical Emergencies . Who to Call and When: Medical Emergencies: If at any time you feel your situation is an emergency, please call [phone] immediately. . Non-Emergent Contact Non-Emergency issues call your: Primary Care Provider, Specialist ( Landing Signal Officer) . . "Provider Documentation" section prepared by Maria De Jesus James. .
[2018-02-12] MEDS: PRENATAL VITAMIN TAB PO SCH (07:28)
[2018-02-12] MEDS: LEVOTHYROXINE 112 MCG TAB PO SCH (07:28)
[2018-02-12] MEDS: DOCUSATE SODIUM 100 MG CAP PO SCH (07:28)
[2018-02-12] MEDS: SIMETHICONE 80 MG CHEW PO SCH (07:28)
[2018-02-12 07:43] VITALS: BP 123/76; PULSE 78; TEMP 37; O2SAT 97
[2018-02-12 14:00] VITALS: BP_DIAS 76; PULSE 78; TEMP 37
[2018-02-12] MEDS ORDERED: MTR600X PO (14:27)
[2018-02-12] MEDS ORDERED: OXYC-57 PO (14:27)
--- NOTE | 2018-02-17 16:16 | DISCHARGE SUMMARY ---
PRINCIPAL DIAGNOSES: Intrauterine at 37 and 3/7 weeks, persistent breech presentation, type 1 insulin-dependent diabetes mellitus and cholestasis of . PRINCIPAL PROCEDURE: Primary low transverse section with delivery of a viable female , 9 pounds 4 ounces. HISTORY OF PRESENT ILLNESS AND HOSPITAL COURSE: The patient is a 27-year-old 1, P0 white female who had been complaining of persistent itching the week prior to her arrival in labor and delivery. Initially, her rash is like PUPPS; however, bile acids were elevated and because she was over 37 weeks when that blood work came back, the protocol is to deliver for cholestasis of at 37 weeks. The infant was still in a breech presentation. A primary section was done without complications. Postoperatively, the patient did well. She received insulin subQ as needed in the first several days as managed by pharmacy. She then had her insulin pump restarted prior to discharge. The patient is well aware of how to manage her pump as she has had it for many years. She was eating regular diet, ambulating without difficulty, voiding without difficulty. Pain was well controlled with oral pain meds. She remained afebrile throughout her hospital stay. Labs: Hemoglobin on admission was 11.5, hematocrit 35.2. First postop day, hemoglobin 8.7, hematocrit 26.8. Second postop day, hemoglobin 8.4, hematocrit of 26.4. Blood sugars remained in the normal range, ranging from the high of 211 to a low of 77. The patient was sent home in good condition with prescriptions for Percocet 1-2 tablets p.o. q. 4 hours p.r.n. pain, Motrin 600 mg p.o. q. 4 hours p.r.n. pain. She is to take an iron tablet daily for the next 6 weeks once bowel function has returned completely. She is to be seen in the office in 6 weeks for postop and visit. She is to call for temperature of 101 degrees or higher, heavy vaginal bleeding, burning with urination, increased redness, drainage or pain in her incision, calf tenderness or any other concerns.
== END 2018-02-12 14:45 | disposition home or self-care (01) | DRG 765 ==
LOC: C.LD 09:40 → C.OBG 16:50 → EDSTATUS 02-20 07:30
PROVIDERS: ADMIT Obstetrics & Gynecology; ATTEND Obstetrics & Gynecology
PROC: 10D00Z1 Extraction of Products of Conception, Low, Open Approach (ICD-10-PCS; principal; 2018-02-09 12:12)
DX: O26.62 Liver and biliary tract disorders in childbirth (principal); K83.1 Obstruction of bile duct; O24.02 Pre-existing type 1 diabetes mellitus, in childbirth; E10.9 Type 1 diabetes mellitus without complications; O32.8XX0 Maternal care for other malpresentation of fetus, not applicable or unspecified; O69.81X0 Labor and delivery complicated by cord around neck, without compression, not applicable or unspecified; O28.8 Other abnormal findings on antenatal screening of mother; O99.284 Endocrine, nutritional and metabolic diseases complicating childbirth; E03.9 Hypothyroidism, unspecified; Z3A.37 37 weeks gestation of pregnancy; Z37.0 Single live birth; Z79.899 Other long term (current) drug therapy; Z88.2 Allergy status to sulfonamides

== ENCOUNTER 2020-09-01 05:35 | Inpatient (IN) ==
--- NOTE | 2020-08-30 11:29 | Anesthesiology Consultation ---
Date of Service August 30, 2020 Assessment & Plan (1) Encounter for pre-operative examination: Chart Review Chart Review: Acceptable Risk for Surgery and Patient NOT seen in Pre Admission Testing Consults Requested none History Surgery Operation Date: 09/01/20 07:30 Proposed Procedures p Section - Joan Connor MD Height/Weight Height: 5 ft 6.5 in Weight: 98.43 kg Allergies Allergy/AdvReac Type Severity Reaction Status Date / Time Bactrim Allergy Mild GI SYMPTOMS Verified 02/09/18 10:23 sulfamethoxazole Allergy Mild GI SYMPTOMS Verified 08/25/20 16:17 trimethoprim Allergy Mild GI SYMPTOMS Verified 08/25/20 16:17 Medications Home Medications Medication Instructions Recorded Confirmed Last Taken blood sugar diagnostic #10 ea 03/03/19 08/25/20 Unknown pen needle, diabetic 32 gauge x #10 ea 03/03/19 08/25/20 Unknown 5/32" Contour Next Test Strips #200 ea NS 05/14/19 08/25/20 Unknown subcutaneous insulin pump #1 ea 01/25/20 08/25/20 Unknown prenat.vits,shannon,[id number] 1 tab PO QAM 02/16/20 08/25/20 08/10/20 21:00 insulin syringe-needle U-100 1 mL #100 ea 04/24/20 08/25/20 Unknown 30 gauge x 1/2" Novolog Flexpen U-100 Insulin 100 See Rx Instructions SQ .COMPLEX 04/27/20 08/25/20 08/11/20 07:30 unit/mL (3 mL) subcutaneous #30 ml NS MDD 100 aspirin 81 mg tablet,delayed 81 mg PO DAILY 04/27/20 08/25/20 08/05/20 07:00 release insulin glargine 100 unit/mL (3 See Rx Instructions SQ HS #15 ml 04/27/20 08/25/20 08/10/20 21:00 mL) subcutaneous pen Novolog U-100 Insulin aspart 100 110 unit SUBCUT .COMPLEX #100 ml NS 05/01/20 08/25/20 08/11/20 07:30 unit/mL subcutaneous solution omeprazole magnesium [Prilosec OTC] 20 mg PO DAILY PRN 08/04/20 08/25/20 Unknown levothyroxine 125 mcg tablet 125 mcg PO QAM #90 tab 08/21/20 08/25/20 Unknown Past Medical History Medical History Acid reflux Kristian's thyroiditis Hypothyroidism Type 1 diabetes continuous glucose monitor Vitamin D deficiency Past Family History Family History Mother Cancer Malignant neoplasm of brain Grandfather (Maternal) Myocardial infarction Colon cancer Father Depression Dyslipidemia Brother Depression Grandfather (Paternal) Heart disease Grandmother (Maternal) Heart disease Anaplastic astrocytoma Thyroid disease Denies family history of Ovarian cancer Prostate cancer Breast cancer Past Surgical History Surgical History Previous back surgery microdiscectomy L5- S1 S/P section x1 [place] teeth extracted Social History Smoking Status: Never smoker Do You Dip or Chew Tobacco: No Hx Alcohol Use: No Hx Substance Use: No substance use type: does not use
--- NOTE | 2020-08-31 09:04 | PAT Medication Instructions ---
Medication Instructions Date of Service August 31, 2020 Home Medications Medication Instructions Recorded Contour Next Test Strips #200 ea NS 05/14/19 insulin syringe-needle U-100 1 mL #100 ea 04/24/20 30 gauge x 1/2" Novolog Flexpen U-100 Insulin 100 See Rx Instructions SQ .COMPLEX 04/27/20 unit/mL (3 mL) subcutaneous #30 ml NS MDD 100 insulin glargine 100 unit/mL (3 See Rx Instructions SQ HS #15 ml 04/27/20 mL) subcutaneous pen Novolog U-100 Insulin aspart 100 110 unit SUBCUT .COMPLEX #100 ml NS 05/01/20 unit/mL subcutaneous solution levothyroxine 125 mcg tablet 125 mcg PO QAM #90 tab 08/21/20 prenat.vits,shannon,[id number] 1 tab PO QAM Novolog Flexpen U-100 Insulin 100 unit/mL (3 mL) subcutaneous See Rx Instructions SQ .COMPLEX #30 ml NS MDD aspirin 81 mg tablet,delayed release 81 mg PO DAILY insulin glargine 100 unit/mL (3 mL) subcutaneous pen See Rx Instructions SQ HS Novolog U-100 Insulin aspart 100 unit/mL subcutaneous solution 110 unit SUBCUT .COMPLEX omeprazole magnesium [Prilosec OTC] 20 mg PO DAILY PRN levothyroxine 125 mcg tablet 125 mcg PO QAM ASK your surgeon for instructions aspirin 81 mg tablet,delayed release 81 mg PO DAILY DO NOT take the morning of surgery prenat.vits,shannon,[id number] 1 tab PO QAM Take morning of surgery With a small sip of water, OTHERWISE NOTHING TO EAT OR DRINK AFTER MIDNIGHT: omeprazole magnesium [Prilosec OTC] 20 mg PO DAILY PRN (if needed) levothyroxine 125 mcg tablet 125 mcg PO QAM Take evening before surgery Novolog Flexpen U-100 Insulin 100 unit/mL (3 mL) subcutaneous See Rx Instructions SQ .COMPLEX #30 ml NS MDD Novolog U-100 Insulin aspart 100 unit/mL subcutaneous solution 110 unit SUBCUT .COMPLEX insulin glargine 100 unit/mL (3 mL) subcutaneous pen See Rx Instructions SQ HS omeprazole magnesium [Prilosec OTC] 20 mg PO DAILY PRN (if needed) Insulin Dependent Diabetic Patients For insulin pump, recommendation to not bolus day of (continue basal setting) unless told otherwise by OB and/or endocrine: Novolog Flexpen U-100 Insulin 100 unit/mL (3 mL) subcutaneous See Rx Instructions SQ .COMPLEX #30 ml NS MDD Novolog U-100 Insulin aspart 100 unit/mL subcutaneous solution 110 unit SUBCUT .COMPLEX Other Notes If you have any questions please call us at [phone] or [phone] or [phone] or [phone]
--- NOTE | 2020-08-31 14:57 | Anesthesiology Consultation ---
Date of Service August 31, 2020 Assessment & Plan (1) Encounter for pre-operative examination: COVID Status: As of 08/31 assessment, patient denies travel to endemic area, known exposure/sick contacts, or symptoms of COVID19. Patient instructed that they and their household members must follow strict social distancing guidelines, wear a mask in public and avoid travel/events/gatherings prior to surgery. Preoperative COVID19 testing done 08/28/20 -- NEGATIVE. Patient is type I diabetic. Very well-controlled. A1C 6.3% 08/18/20. BMP at MDA discretion AM DOS. Case will be done in Main OR due to L+D construction. Plan of care explained to patient. Chart Review Chart Review: Acceptable Risk for Surgery and Patient seen in Pre Admission Testing Teaching & Discussion Instructed NPO after midnight before surgery, except medications with 15 cc of water. Medication instructions provided according to the PAT guidelines. History Surgery Operation Date: 09/01/20 07:30 Proposed Procedures p Section - Joan Connor MD Height/Weight Height: 5 ft 6.5 in Weight: 98.43 kg Allergies Allergy/AdvReac Type Severity Reaction Status Date / Time Bactrim Allergy Mild GI SYMPTOMS Verified 02/09/18 10:23 sulfamethoxazole Allergy Mild GI SYMPTOMS Verified 08/31/20 13:16 trimethoprim Allergy Mild GI SYMPTOMS Verified 08/31/20 13:16 Medications Home Medications Medication Instructions Recorded Confirmed Last Taken blood sugar diagnostic #10 ea 03/03/19 08/31/20 Unknown pen needle, diabetic 32 gauge x #10 ea 03/03/19 08/31/20 Unknown 32" Contour Next Test Strips #200 ea NS 05/14/19 08/31/20 Unknown subcutaneous insulin pump #1 ea 01/25/20 08/31/20 Unknown prenat.vits,shannon,[id number] 1 tab PO QAM 02/16/20 08/31/20 08/10/20 21:00 insulin syringe-needle U-100 1 mL #100 ea 04/24/20 08/31/20 Unknown 30 gauge x 1/2" Novolog Flexpen U-100 Insulin 100 See Rx Instructions SQ .COMPLEX 04/27/20 08/31/20 08/11/20 07:30 unit/mL (3 mL) subcutaneous #30 ml NS MDD 100 aspirin 81 mg tablet,delayed 81 mg PO DAILY 04/27/20 08/31/20 08/05/20 07:00 release insulin glargine 100 unit/mL (3 See Rx Instructions SQ HS #15 ml 04/27/20 08/31/20 08/10/20 21:00 mL) subcutaneous pen Novolog U-100 Insulin aspart 100 110 unit SUBCUT .COMPLEX #100 ml NS 05/01/20 08/31/20 08/11/20 07:30 unit/mL subcutaneous solution omeprazole magnesium [Prilosec OTC] 20 mg PO DAILY PRN 08/04/20 08/31/20 Unknown levothyroxine 125 mcg tablet 125 mcg PO QAM #90 tab 08/21/20 08/31/20 Unknown Past Medical History Medical History (Updated 08/31/20 @ 15:06 by Geremias Robin) Acid reflux Kristian's thyroiditis Hypothyroidism Type 1 diabetes insulin pump with CGM. Vitamin D deficiency Past Family History Family History Mother Cancer Malignant neoplasm of brain Grandfather (Maternal) Myocardial infarction Colon cancer Father Depression Dyslipidemia Brother Depression Grandfather (Paternal) Heart disease Grandmother (Maternal) Heart disease Anaplastic astrocytoma Thyroid disease Denies family history of Ovarian cancer Prostate cancer Breast cancer Past Surgical History Surgical History Previous back surgery microdiscectomy L5- S1 S/P section x1 [place] teeth extracted Past Anesthesia History No Hx of Anesthesia Complications and No Family Hx of Anesthesia Complications History of PONV No Hx of PONV and No Hx of Motion Sickness Social History Smoking Status: Never smoker Do You Dip or Chew Tobacco: No Hx Alcohol Use: No Hx Substance Use: No substance use type: does not use Review of Systems Pt denies any recent chest pain, shortness of breath, palpitations, cough, fever, URI, or uncontrolled acid reflux. Physical Exam Vital Signs BP: 137/80 -- pt asymptomatic, reports was elevated at [facility] office P: 98bpm SPO2: 99% RA T: 98.7 F R: 18 ENMT Mouth: + dental restorations (maybe a crown? none on front); no chipped teeth and no loose teeth Thyromental Distance: > or= 3.5 Finger Breadths Mallampati Class: II Neck neck extension not limited Respiratory normal respiratory effort, lungs clear to auscultation Cardiovascular RRR, no murmur, no edema Testing Laboratory Results A1C 08/18/20 = 6.3% COVID test 08/28/20 = NEGATIVE
--- NOTE | 2020-08-31 19:24 | History & Physical Report ---
Date of Service August 31, 2020 Assessment & Plan (1) Encounter for pre-operative examination: (2) Previous delivery affecting , antepartum: NST reactive today, pt doing well and w/o complaints. Pt continues to desire repeat CS. Discussed indications, risks, benefits, alternatives with risks including infection, bleeding, injury to adjacent structures (bowel, bladder, ureters, blood vessels, nerves, baby), possible need for blood transfusion and/or life saving hysterectomy, VTE. Consent reviewed in detail w/ pt and signed after all questions answered to her satisfaction. Pt will be meeting with anesthesia after this appt, plan to continue basal insulin and have CGM to monitor for afterward, consider endo consult if pt has difficulty with managing sugars but says she did well managing them on her own last time. History of Present Illness Chief Complaint: Elective repeat section Primary Care Provider: NO PCP 29 y/o at 39 wga w/ AIDAN 3/4 by LMP 12/01 c/w 1st [facility] who presents for elective repeat CS preop. +FM; denies ctx, LOF, VB. 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: G1 2018 pLTCS for breech, ICP G2 current menarche 11, 28 day cycles pap 01/2020 neg cotest no hx abnls no hx STI Allergies Allergy/AdvReac Type Severity Reaction Status Date / Time Bactrim Allergy Mild GI SYMPTOMS Verified 02/09/18 10:23 sulfamethoxazole Allergy Mild GI SYMPTOMS Verified 08/31/20 13:16 trimethoprim Allergy Mild GI SYMPTOMS Verified 08/31/20 13:16 Home Medications Medication Instructions Recorded Confirmed Type blood sugar diagnostic #10 ea 03/03/19 08/31/20 History pen needle, diabetic 32 gauge x #10 ea 03/03/19 08/31/20 History /32" Contour Next Test Strips #200 ea NS 05/14/19 08/31/20 Rx subcutaneous insulin pump #1 ea 01/25/20 08/31/20 History prenat.vits,shannon,tai-jffj-pgmpw 1 tab PO QAM 02/16/20 08/31/20 History insulin syringe-needle U-100 1 mL #100 ea 04/24/20 08/31/20 Rx 30 gauge x 1/2" Novolog Flexpen U-100 Insulin 100 See Rx Instructions SQ .COMPLEX 04/27/20 08/31/20 Rx unit/mL (3 mL) subcutaneous #30 ml NS MDD 100 aspirin 81 mg tablet,delayed 81 mg PO DAILY 04/27/20 08/31/20 History release insulin glargine 100 unit/mL (3 See Rx Instructions SQ HS #15 ml 04/27/20 08/31/20 Rx mL) subcutaneous pen Novolog U-100 Insulin aspart 100 110 unit SUBCUT .COMPLEX #100 ml NS 05/01/20 08/31/20 Rx unit/mL subcutaneous solution omeprazole magnesium [Prilosec OTC] 20 mg PO DAILY PRN 08/04/20 08/31/20 History levothyroxine 125 mcg tablet 125 mcg PO QAM #90 tab 08/21/20 08/31/20 Rx Patient History Medical History Acid reflux Kristian's thyroiditis Hypothyroidism Type 1 diabetes insulin pump with CGM. Vitamin D deficiency Surgical History Previous back surgery microdiscectomy L5- S1 S/P section x1 [place] teeth extracted Family History Mother Cancer Malignant neoplasm of brain Grandfather (Maternal) Myocardial infarction Colon cancer Father Depression Dyslipidemia Brother Depression Grandfather (Paternal) Heart disease Grandmother (Maternal) Heart disease Anaplastic astrocytoma Thyroid disease Denies family history of Ovarian cancer Prostate cancer Breast cancer Social History Smoking Status: Never smoker Second Hand Exposure: No; Hx Alcohol Use: No Hx Substance Use: No Preferred Language: Cymro Communication Ability: Effective Visual Impairment: No Limitations Hearing Ability: Normal Field Specialist Required: No Beliefs That Will Affect Care: None marital status: marital status details: Crow (31) [phone] Current Living Situation: Spouse and Family Current Living Situation Comment: lives with spouse, daughter, 3 dogs current occupational status: 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 Feels Safe at Home: Yes Childhood Exposure to Second-Hand Smoke: No Dental Care, Regularly: Yes Physical Activity Frequency: 1-2 Times per Week Physical Activity Frequency Comment: walks dogs Seatbelt Use: always Sunscreen Use: Yes (most of the time) Assistive Devices: Contacts and Glasses Physical Exam Constitutional: WD/WN, vitals as above Respiratory: normal respiratory effort; no respiratory distress and no labored breathing Psychiatric: A+Ox3, euthymic affect Genitourinary: NST reactive Results & Data ([facility]) Laboratory Results OB Labs: Blood Type O Positive 01/27/20 Antibody Screen NEGATIVE 01/27/20 Hemoglobin 10.8 g/dL (12.0-16.0) L 06/28/20 Hematocrit 32.6 % (37-47) L 06/28/20 Mean Corpuscular Volume 86.2 fL (80-100) 01/27/20 Platelet Count 293 K/uL (130-400) 01/27/20 Rubella IgG Antibody Immune (Immune) 01/27/20 Rapid Plasma Reagin Nonreactive (Nonreactive) 01/27/20 Hepatitis B Surface Antigen Neg (Neg) 01/27/20 HIV (1&2) Ab and P24 Ag, 4th Gener Neg (Neg) 01/27/20 OB Optional Labs: Chlamydia trachomatis RNA NOT DETECTED (NOT DETECTED) 02/03/20 Neisseria gonorrhoeae RNA NOT DETECTED (NOT DETECTED) 02/03/20 Thyroid Stimulating Hormone (TSH) 1.410 uIu/ml (0.300-4.500) 08/18/20 Alpha Fetoprotein Triple Screen SEE NOTE 09/11/17 Alpha Fetoprotein 33.2 NG/ML 09/11/17 Labs Reviewed: cfDNA low risk cf/sma neg decline AFP GBS neg Diagnostic Findings 08/11 EFW 3632g, 98% ant plac echo wnl Coding Level of Care Code None Diagnoses Encounter for pre-operative examination Z01.818 Previous delivery affecting , antepartum O34.219
[2020-09-01] MEDS ORDERED: LACTATED RINGER'S 1,000 ML IV SCH ×2 (05:45→06:00)
[2020-09-01] MEDS ORDERED: ceFAZolin 3,000 MG in DEXTROSE 5% 50 ML IV SCH (06:00)
[2020-09-01] MEDS ORDERED: CITRIC ACID/SODIUM CITRATE 15 ML UDC PO SCH (06:00)
[2020-09-01 06:15] LABS: Basophils # (auto) 0.02 K/uL (0-0.2); Basophils % (auto) 0.2 %; Eosinophils % (auto) 0.9 %; Hematocrit (blood only) 31.8 % (37-47); Immature Granulocytes # (auto) 0.14 K/uL (0.00-0.02); Immature Granulocytes % (auto) 1.3 %; Lymphocytes # (auto) 1.64 K/uL (1.2-3.4); Lymphocytes % (auto) 15.3 %; Mean Corpuscular Hemoglobin 23.8 pg (25-34); Mean Corpuscular Hgb Conc 31.4 g/dL (32-36); Mean Corpuscular Volume 75.5 fL (80-100); Monocytes # (auto) 0.76 K/uL (0.11-0.59); Monocytes % (auto) 7.1 %; Neutrophils # (auto) 8.07 K/uL (1.4-6.5); Neutrophils % (auto) 75.2 %; Platelet Count 256 K/uL (130-400); RDW Coefficient of Variation 15.6 % (11.5-14.5); Red Blood Count 4.21 M/uL (4.2-5.4); White Blood Count 10.73 K/uL (4.8-10.8)
[2020-09-01] MEDS ORDERED: fentaNYL citrate 100 MCG/2 ML VIAL ONE (06:57)
[2020-09-01] MEDS ORDERED: MoRPHine SULFATE PF 1 MG/ML 10 ML AMP/VIAL ONE (06:57)
[2020-09-01] MEDS ORDERED: ONDANSETRON INJ 2 MG/ML 2 ML VIAL ONE (07:01)
[2020-09-01] MEDS ORDERED: SODIUM CHLORIDE 0.9% INJ 10 ML VIAL ONE (07:01)
[2020-09-01] MEDS ORDERED: OXYTOCIN 10 UNITS/ML VIAL ONE (07:01)
--- NOTE | 2020-09-01 07:10 | History & Physical Bridge Note ---
Date of Service September 01, 2020 History & Physical Bridge Note I have examined the patient, reviewed the History & Physical and in the interval since the performance of the History & Physical I have noted the following changes of clinical significance: no changes noted. +FM; denies ctx, LOF, VB. RRR, CTAB, BSUS cephalic. Maintained continuous basal dosing overnight, plan to consult hospitalist team following for assistance in insulin management
[2020-09-01] MEDS ORDERED: PHENYLEPHRINE 100MCG/ML 5ML SYR ONE (07:48)
[2020-09-01] MEDS ORDERED: DEXTROSE 50% 50 ML SYRINGE IV ONE (07:57)
[2020-09-01] MEDS ORDERED: diphenhydrAMINE 50 MG/ML VIAL ONE (08:39)
[2020-09-01] MEDS ORDERED: KETOROLAC 30 MG/ML VIAL ONE (08:39)
[2020-09-01] MEDS ORDERED: NALOXONE HCL 0.4 MG/1 ML VIAL/CARP IV PRN (09:07)
[2020-09-01] MEDS ORDERED: PROMETHAZINE HCL 25 MG in SODIUM CHLORIDE 0.9% 50 ML IV PRN (09:07)
[2020-09-01] MEDS ORDERED: LACTATED RINGER'S 500 ML IV PRN (09:07)
[2020-09-01] MEDS ORDERED: ACETAMINOPHEN 1000 MG/100 ML IV IV PRN (09:07)
[2020-09-01] MEDS ORDERED: diphenhydrAMINE 50 MG/ML VIAL IV PRN (09:07)
[2020-09-01] MEDS ORDERED: HYDROmorphone INJ 0.5 MG/0.5 ML SYR IV PRN (09:07)
[2020-09-01] MEDS ORDERED: MoRPHine SULFATE PF 1 MG/ML 10 ML AMP/VIAL INT SPINAL ONE (09:07)
[2020-09-01] MEDS ORDERED: ePHEDrine sulfate 50 MG/ML AMP IV PRN (09:07)
[2020-09-01] MEDS ORDERED: NALOXONE HCL 1 MG in SODIUM CHLORIDE 0.9% 1000ML 1,000 ML IV PRN (09:07)
[2020-09-01] MEDS ORDERED: NALOXONE HCL 0.08 MG in SYRINGE 1.8 ML IV PRN (09:07)
[2020-09-01] MEDS ORDERED: ONDANSETRON INJ 2 MG/ML 2 ML VIAL IV PRN (09:07)
--- NOTE | 2020-09-01 09:08 | Post Operative Brief Note ---
PG Immediate Post Op with CF Date of Surgery September 01, 2020 Pre & Post Diagnosis Operation Date: 09/01/20 07:30 Pre-Op Diagnosis: Single Intrauterine at 39 1/7 weeks; History of Caesarean Section Times One - Desires Repeat; Type 1 Diabetes; Hypothyroidism Post-Op Diagnosis: Same; Delivery of a live male infant at 0809 ( main OR 3) I identified the patient and participated in the time-out.: Yes Procedure Operation Date: 09/01/20 07:30 Actual Procedures p Vacuum Assisted Repeat Low Transverse Section - Joan Connor MD Surgeon Joan Connor MD Chemical Pathologist MD Kelly Estimated Blood Loss 700 Findings Consistent with Post-Op Diagnosis Normal appearing uterus, bilateral fallopian tubes, and ovaries. Dense rectus muscle adhesions noted on entry into abdomen. Findings also include viable male weighing 10lb 6.8oz w/ APGARs of 8 and 10. head was noted to be floating at time of delivery and so vacuum was used to assist in delivering head. Fluids 750cc crystalloid UOP 75cc by chacon catheter Specimens Specimen Description: A. Placenta-hold B. cord blood Drains Chacon Catheter (draining clear urine) Anesthesia Type Spinal Complications none Disposition Accompanied Patient To Recovery: Yes Disposition: L&D
[2020-09-01] MEDS ORDERED: SODIUM CHLORIDE 0.9% 1000ML 1,000 ML IV SCH (09:15)
[2020-09-01] MEDS ORDERED: NO NARCOTICS OR SEDATIVES SCH (09:15)
[2020-09-01] MEDS ORDERED: DC INTRASPINAL MORPHINE SCH (09:15)
[2020-09-01] MEDS ORDERED: SUPERCREAM 0.870% 15 GM JAR EXT PRN (09:38)
[2020-09-01] MEDS ORDERED: DIPHTHERIA/TETANUS/PERTUSSIS 0.5 ML SYR/VIAL IM ONE (09:38)
[2020-09-01] MEDS ORDERED: BENZOCAINE 20% AER SPR 82.5 GM CAN EXT PRN (09:38)
[2020-09-01] MEDS ORDERED: HYDROCORTISONE ACETATE 25 MG SUPP PR PRN (09:38)
[2020-09-01] MEDS ORDERED: SENNA 8.6 MG TAB PO PRN (09:38)
[2020-09-01] MEDS ORDERED: MAGNESIUM HYDROXIDE SUSP 30 ML UDC PO PRN (09:38)
--- NOTE | 2020-09-01 09:50 | Operative Report ---
PG Post Operative Report Pre & Post Diagnosis Operation Date: 09/01/20 07:30 Pre-Op Diagnosis: Single Intrauterine at 39 1/7 weeks; History of Caesarean Section Times One, desires repeat; Type 1 Diabetes; Hypothyroidism Post-Op Diagnosis: Same; Delivery of a live male at 0809 ( main OR 3) I identified the patient and participated in the time-out.: Yes Procedure Operation Date: 09/01/20 07:30 Actual Procedures p Vacuum Assisted Repeat Low Transverse Section - Joan Connor MD Surgeon Joan Connor MD Brand Development Manager MD Kelly Estimated Blood Loss 700 Findings Consistent with Post-Op Diagnosis Normal appearing uterus, bilateral fallopian tubes, and ovaries. Dense rectus muscle adhesions noted on entry into abdomen. Findings also include viable male infant weighing 10lb 6.8oz w/ APGARs of 8 and 10. head was noted to be floating at time of delivery and so vacuum was used to assist in delivering head. Fluids 750cc crystalloid UOP 75cc by chacon catheter Specimens A. Placenta-hold B. cord blood Drains Chacon draining clear urine Anesthesia Type Spinal Complications none Disposition Accompanied Patient To Recovery: Yes Disposition: L&D Indications 29 y/o at 39 1/7 wga w/ AIDAN 3/4 presents for scheduled elective repeat section. Has a hx of CSx1 due to breech and cholestasis. This has been complicated by T1DM, hypothyroid. She had been counseled regarding vs repeat CS and desired repeat CS. Consent was reviewed in detail and signed after all questions were answered. Category 1 tracing was obtained on admission. Description of Procedure The patient was taken to the operating room after consents were ensured. The patient was properly identified. Spinal anesthesia was obtained without difficulty. The patient was placed in a dorsal supine position with left lateral tilt, then prepped and draped in normal sterile fashion. Surgical time out was performed. Antibiotics were given for prophylaxis. Anesthesia was tested to ensure adequate surgical levels. Pfannenstiel skin incision using prior scar was performed and carried down to the underlying fascia with a knife. The fascia was then nicked in the midline and extended laterally with pickamanda and Arnold scissors. Superior portion of the fascia was grasped with Kochers x2 and elevated off the underlying rectus muscles using scalpel and blunt dissection. Inferior portion of the fascia was then grasped with Elo clamps x2 and also elevated off the underlying muscles with scissors blunt dissection. Midline was identified. Dense rectus adhesions were noted and rectus was carefully incised and using metzenbaum scissors. The peritoneum was then identified and entered sharply, and extended to provide adequate room for delivery of baby. The hand was inserted into the abdomen, uterus was noted to be clear of adhesions. Bladder blade was inserted, bladder flap was created in the usual fashion. A low transverse uterine incision was made in the uterus and extended bluntly in a superior to inferior fashion. Amniotomy was made with clear fluid at the time of rupture. head was grasped and elevated to the hysterotomy in an atraumatic fashion however head was unable to be delivered through the hysterotomy with adequate fundal pressure. Vacuum was requested and applied to the head with care to avoid maternal tissue however the vacuum was unable to create a seal and so second vacuum was requested. This vacuum was then applied and suction increased to the green zone by assistant produce manager. With fundal pressure and one pull of vacuum, the baby delivered in FELICIA position, no nuchal cord. Vacuum was removed. Remainder of the body delivered without incident. Nose and mouth were bulb suctioned on the surgical field. The cord was double clamped and cut after 30 seconds of delayed cord clamping, baby was handed off to awaiting pediatrics staff. Cord segment and blood were obtained. Placenta was then expressed from the uterus. The uterus was exteriorized. Several passes were made inside the uterus to remove the remaining membranes. Attention was then turned to the hysterotomy, which was then closed with a running locked suture of 0 Vicryl on a CTX needle. An imbricating layer was then performed using 0-Monocryl. There was noted to be good hemostasis. The posterior cul-de-sac was then inspected and cleaned of clot and debris. The h ysterotomy was again inspected and noted to be hemostatic. The uterus was returned to the abdomen. The right and left pericolic gutters were cleaned of all clot and debris. The hysterotomy was again noted to be hemostatic. Space of Retzius was noted to be hemostatic. An area of rectus that was bleeding was made hemostatic with a figure of eight stitch using 0-Monocryl. The fascia was then closed with a running suture of 0 Vicryl on a CT1 needle. Subcutaneous tissue was copiously irrigated and noted to be hemostatic. Subcutaneous tissue was re- approximated using 2-0 plain gut. The skin was then closed with a running suture of 3-0 Monocryl in a subcuticular fashion. At termination of the procedure, the fundal pressure was applied and a moderate amount of lochia was expressed. Dermabond was applied to the patient. She tolerated the procedure well. All sponge, needle, instrument counts were correct x 2. I attest to the content of the Intraoperative Record and any orders documented therein. Any exceptions are noted below. OB Procedure charges OB Charges [id number] C/S
[2020-09-01] MEDS: OXYTOCIN 20 UNITS in LACTATED RINGER'S 1,000 ML IV SCH ×2 (10:02→18:17)
--- NOTE | 2020-09-01 10:20 | Hospitalist Consultation ---
Date of Consultation September 01, 2020 Assessment & Plan (1) Diabetes type 1, controlled: - Will switch from glucometer to accuchecks for now ACHS until CGM has been evaluated and corrected to read accurately. - ISS with accuchecks Q4H x 24 hours now since , then may be able to transition to accuchecks achs if glucometer readings are stable. - CR 1:5 to loosen up from 1:3 like was prior to delivery, allow basal rate of 3 U/hr per insulin pump, and CF of 15. Insulin readings in the low 200s, most recent check was 129 at bedside during my eval. - Last A1C = 6.3 - Pt reports does not diet control at home, does not eat low carb - would readdress the importance of good nutrition prior to dc - Will consult informatics educator for meter assistance. (2) Hypothyroidism: - Continue levothyroxine 125 mg daily - TSH 1.410 and T4 1.07 (3) Vitamin D deficiency: - Continue vitamin, would maintain this through breast feeding if the pt is choosing to do this (4) Gastroesophageal reflux disease: - Continue omeprazole 20 mg daily prn DVT ppx: teds, ambulatory CODE: Full Dispo: From home, discharge per the primary team. Thank you for involving us in the care of Mrs Gómez. Please do not hesitate to call with questions or concerns. At this time medicine service will follow along. Supervising Physician Co-Signing Physician Notes During my face to face encounter with the patient, obtained a brief history and physical examination. Patient was lying in bed in no distress, not using accessory muscles to breath. Normal inspection of HEENT. I DISCUSSED PLAN OF CARE WITH PATIENT AND VANDANA Orozco. In regards to diabetes. Will resume insulin pump and monitor blood sugar. History of Present Illness Reason for Consultation: DM type I Requesting Physician: Dr. Connor Attending Physician: Joan Connor MD History of Present Illness This is a 29 yo F with PMHx of DM Type I with insulin pump and CGM who presented for routine , with baby boy. S/p surgery, the patients glucose was noted with accucheck to be 124-->126-->239-->197-->162 with glucometer readings varying as low as in the 50s at the same time. Medicine is consulted for glucose management with CGM malfunction. The pump reads unable to calibration when she attempts to use it. Pt also reports that she does not use the CMG all the time at home, and is not worried about this. Follows with endocrinology as an outpatient. Pt is doing well, reports her stomach is itchy but does not have a rash /p c section and thinks this is from medication given during . Denies any other acute complaints. Significant other is at bedside. Allergies Allergy/AdvReac Type Severity Reaction Status Date / Time Bactrim Allergy Mild GI SYMPTOMS Verified 02/09/18 10:23 sulfamethoxazole Allergy Mild GI SYMPTOMS Verified 08/31/20 13:16 trimethoprim Allergy Mild GI SYMPTOMS Verified 08/31/20 13:16 Home Medications Medication Instructions Recorded Confirmed Type blood sugar diagnostic #10 ea 03/03/19 08/31/20 History pen needle, diabetic 32 gauge x #10 ea 03/03/19 08/31/20 History 5/32" Contour Next Test Strips #200 ea NS 05/14/19 08/31/20 Rx subcutaneous insulin pump #1 ea 01/25/20 08/31/20 History prenat.vits,shannon,zvp-svtq-smufe 1 tab PO QAM 02/16/20 08/31/20 History insulin syringe-needle U-100 1 mL #100 ea 04/24/20 08/31/20 Rx 30 gauge x 1/2" Novolog Flexpen U-100 Insulin 100 See Rx Instructions SQ .COMPLEX 04/27/20 08/31/20 Rx unit/mL (3 mL) subcutaneous #30 ml NS MDD 100 aspirin 81 mg tablet,delayed 81 mg PO DAILY 04/27/20 08/31/20 History release insulin glargine 100 unit/mL (3 See Rx Instructions SQ HS #15 ml 04/27/20 08/31/20 Rx mL) subcutaneous pen Novolog U-100 Insulin aspart 100 110 unit SUBCUT .COMPLEX #100 ml NS 05/01/20 08/31/20 Rx unit/mL subcutaneous solution omeprazole magnesium [Prilosec OTC] 20 mg PO DAILY PRN 08/04/20 08/31/20 History levothyroxine 125 mcg PO DAILY 09/01/20 09/01/20 History Patient History Medical History Acid reflux Kristian's thyroiditis Hypothyroidism Type 1 diabetes insulin pump with CGM. Vitamin D deficiency Vitiligo Surgical History Previous back surgery microdiscectomy L5- S1 S/P section x1 [place] teeth extracted Family History Mother Cancer Malignant neoplasm of brain Grandfather (Maternal) Myocardial infarction Colon cancer Father Depression Dyslipidemia Brother Depression Grandfather (Paternal) Heart disease Grandmother (Maternal) Heart disease Anaplastic astrocytoma Thyroid disease Denies family history of Ovarian cancer Prostate cancer Breast cancer Social History Smoking Status: Never smoker Second Hand Exposure: No; Do You Dip or Chew Tobacco: No; Tobacco Cessation Education Requested by Patient: No Hx Alcohol Use: No Hx Substance Use: No Preferred Language: Yemeni Communication Ability: Effective Visual Impairment: No Limitations Hearing Ability: Normal Toy 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 Wood Required: No Beliefs That Will Affect Care: None marital status: marital status details: Crow (31) [phone] Current Living Situation: Spouse and Family Current Living Situation Comment: Lives with and 2.5 y/o daughter current occupational status: employed 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 Other Information That Helps Us Care for You: No Feels Safe at Home: Yes Safety Concerns: Feels Safe At This Time Childhood Exposure to Second-Hand Smoke: No Dental Care, Regularly: Yes Physical Activity Frequency: 1-2 Times per Week Physical Activity Frequency Comment: walks dogs Seatbelt Use: always Sunscreen Use: Yes (most of the time) Assistive Devices: None Review of Systems Review of Systems: Constitutional: No fever, sweats or chills Eyes: No diplopia, no worsening or blurred vision ENT: normal hearing, no trouble swallowing Respiratory: No cough, sputum, dyspnea at rest or on exertion Cardiovascular: No chest pain, tightness or palpitations Abdomen: As per HPI, + itching s/p c section. No nausea, vomiting, diarrhea or constipation Musculoskeletal: No joint pain, calf pain, swelling Neurologic: No weakness, numbness/tingling, or balance problems Psychiatric: No anxiety or depression Skin: No rash or itch Physical Exam Physical Exam: General: awake, alert, no apparent distress, overweight, BMI 36.2 Head: Normocephalic, atraumatic ENT: PERRL, EOMI, no pharyngeal exudate, mucous membranes moist Chest: Clear to auscultation, on room air, no adventitious breath sounds Cardiac: Regular rate and rhythm, no murmur, no JVD, normal peripheral pulses, good capillary refill Abdominal: NABS x 4 quadrants, soft, nondistended, incision intact. Nontender, no rebound or guarding Extremities: Normal inspection, no peripheral edema or erythema, calfs nontender to palpation Psych: Normal mood and affect Neuro: AAO x 3, strength intact bilaterally and rated 5/5, no motor deficits, speech is clear, no peripheral sensory deficits Results & Data Results & Data ([facility]) Vital Signs (Past 12 Hours) Vital Signs Temp Pulse Resp BP Pulse Ox 09/01/20 10:08 75 137/85 09/01/20 10:07 69 100 09/01/20 10:02 73 100 09/01/20 09:58 66 135/83 09/01/20 09:57 68 100 09/01/20 09:52 87 99 09/01/20 09:48 70 133/81 09/01/20 09:47 72 100 09/01/20 09:42 77 100 09/01/20 09:38 65 124/68 09/01/20 09:37 68 99 09/01/20 09:32 92 H 98 09/01/20 09:28 80 141/73 H 09/01/20 09:27 70 98 09/01/20 09:22 91 H 97 09/01/20 09:20 78 139/67 09/01/20 09:17 87 98 09/01/20 09:12 86 92 09/01/20 09:08 80 131/66 09/01/20 09:07 90 97 09/01/20 09:02 83 96 09/01/20 09:00 36.4 C L 18 09/01/20 08:58 72 124/68 09/01/20 08:57 181 H 91 09/01/20 06:12 36.9 C 91 H 18 133/84 09/01/20 05:48 36.9 C 91 H 18 133/84 PG Care Time/CCT Total # of Minutes Spent Total Time Spent with Patient: Total time spent is greater than 50% in coordination of care (as documented) at patient's floor/unit and/or counseling patient: Coding Level of Care Code 74245 Inpt Consult Level 3 Diagnoses Diabetes type 1, controlled E10.9 Hypothyroidism E03.9 Vitamin D deficiency E55.9 Gastroesophageal reflux disease K21.9
[2020-09-01] MEDS ORDERED: GLUCAGON FOR INJ 1 MG VIAL SQ PRN (10:38)
[2020-09-01] MEDS ORDERED: GLUCOSE 10 TABS/TUBE PO PRN (10:38)
[2020-09-01] MEDS ORDERED: DEXTROSE 50% 50 ML SYRINGE IV PRN (10:38)
[2020-09-01] MEDS ORDERED: CARBOHYDRATES FOR HYPOGLYCEMIA PO PRN (10:38)
[2020-09-01] MEDS ORDERED: GLUCOSE 40% GEL 15 GM TUBE PO PRN (10:38)
--- NOTE | 2020-09-01 10:42 | Anesthesiology Progress Note ---
Date of Service September 01, 2020 Anesthesia Post Procedure Vital Signs Vital Signs: Temp Pulse Resp BP Pulse Ox 09/01/20 10:38 75 130/78 09/01/20 10:37 72 100 09/01/20 10:32 79 100 09/01/20 10:30 18 09/01/20 10:28 78 132/82 09/01/20 10:27 77 100 09/01/20 10:22 70 100 09/01/20 10:18 71 128/80 09/01/20 10:17 69 100 09/01/20 10:12 79 100 09/01/20 10:08 75 137/85 09/01/20 10:07 69 100 09/01/20 10:02 73 100 09/01/20 10:00 18 09/01/20 09:58 66 135/83 09/01/20 09:57 68 100 09/01/20 09:52 87 99 09/01/20 09:50 18 09/01/20 09:48 70 133/81 09/01/20 09:47 72 100 09/01/20 09:42 77 100 09/01/20 09:40 18 09/01/20 09:38 65 124/68 09/01/20 09:37 68 99 09/01/20 09:32 92 H 98 09/01/20 09:30 18 09/01/20 09:28 80 141/73 H 09/01/20 09:27 70 98 09/01/20 09:22 91 H 97 09/01/20 09:20 78 18 139/67 09/01/20 09:17 87 98 09/01/20 09:12 86 92 09/01/20 09:08 80 131/66 09/01/20 09:07 90 97 09/01/20 09:02 83 96 09/01/20 09:00 36.4 C L 18 09/01/20 08:58 72 124/68 09/01/20 08:57 181 H 91 09/01/20 06:12 36.9 C 91 H 18 133/84 09/01/20 05:48 36.9 C 91 H 18 133/84 Transfer of Care Handoff Completed per policy Notes Mental Status: alert / awake / arousable and participated in evaluation Nausea / Vomiting: adequately controlled Pain: adequately controlled Airway Patency, RR, SpO2: stable & adequate BP & HR: stable & adequate Hydration State: stable & adequate Neuraxial Anesthesia: was administered and sensory block is resolving Anesthetic Complications: no major complications apparent and Pt Satisfied with anesthetic care
[2020-09-01] MEDS ORDERED: INSULIN ASPART 100 UNITS/ML VIAL SC PRN (12:00)
[2020-09-01] MEDS ORDERED: INSULIN ASPART 100 UNITS/ML 3 ML PEN SC SCH (12:00)
[2020-09-01] MEDS: NovoLOG INSULIN PUMP SCH ×3 (12:28→21:30)
[2020-09-01] MEDS: SIMETHICONE 80 MG CHEW PO SCH ×3 (13:21→20:16)
[2020-09-01] MEDS: KETOROLAC 30 MG/ML VIAL IV PRN ×2 (15:41→23:39)
[2020-09-01] MEDS: DOCUSATE SODIUM 100 MG CAP PO SCH (20:16)
[2020-09-02] MEDS ORDERED: PROMETHAZINE HCL 25 MG in SODIUM CHLORIDE 0.9% 50 ML IV PRN (03:07)
[2020-09-02] MEDS ORDERED: diphenhydrAMINE 50 MG/ML VIAL IV PRN (03:07)
[2020-09-02] MEDS ORDERED: ONDANSETRON INJ 2 MG/ML 2 ML VIAL IV PRN (03:07)
[2020-09-02] MEDS ORDERED: diphenhydrAMINE Capsule 25 MG CAP PO PRN (03:07)
[2020-09-02] MEDS ORDERED: KETOROLAC 30 MG/ML VIAL IV PRN (03:07)
[2020-09-02] MEDS: LEVOTHYROXINE SODIUM 125 MCG TABLET PO SCH (06:00)
--- NOTE | 2020-09-02 06:18 | Obstetrical Progress Note ---
Date of Service <Georgi Huff MD - Last Filed: 09/02/20 07:21> September 02, 2020 Assessment & Plan <Georgi Huff MD - Last Filed: 09/02/20 07:21> (1) state: 29 y/o s/p [facility] rLT[facility] at 39w1d and is POD1. DM1. Hypothyroidism. O pos. RI. GBS neg. - vitals reviewed 0415. wnl. O2 sat on room air 90 x1 at 0130. More recent O2 sat 95% on room air. - Hb 10.0->9.6, stable - chacon removed. pain controlled. has ambulated. . - continue routine care. meeting POD1 milestones (2) Diabetes type 1, controlled: - hospitalist consulted 09/01 - recs: pt will use own pump per pt's preference. SSI w/ carb ratio of 1:5, CF 10. Maintain BG 90-120. Accuchecks. (3) Hypothyroidism: - continue levothyroxine 125 mcg Subjective <Georgi Huff MD - Last Filed: 09/02/20 07:21> Ambulation: ambulating normally Voiding: no voiding problems Passing Gas:: Yes Diet Tolerance:: regular diet Lochia:: Moderate Feeding Type:: breast feeding (some formula supplement because of weight) Current Pain Level(1-10): 1 (pain is 1-2, controlled w/ pain meds. ) Doing well. No complaints this morning. Review of Systems Denies fever, chills, sweats Denies shortness of breath, chest pain, palpitations. Denies breast pain. Denies dysuria. Denies headache or changes in vision. Denies nausea/vomiting. Denies numbness, tingling, weakness. Denies calf pain. No mood problems. Physical Exam <Georgi Huff MD - Last Filed: 09/02/20 07:21> General: Alert, oriented. No acute distress. Cardiac: Regular rate and rhythm, no murmurs/rubs/gallops. Respiratory: Clear to auscultation bilaterally, no wheezes/rales/rhonchi. No respiratory distress. Abdomen: , soft. Appropriately tender, mild. Incision appears intact, no drainage, no bleeding. Uterus: Uterine fundus firm, palpable 1cm below umbilicus. Lower Extremities: No lower extremity edema or swelling. No deep calf pain. Dimitri's negative bilaterally. Results & Data ([facility]) <Georgi Huff MD - Last Filed: 09/02/20 07:21> Vital Signs (Past 12 Hours) Vital Signs Temp Pulse Resp BP Pulse Ox 09/02/20 04:15 36.6 C 77 18 122/78 09/02/20 02:29 18 95 09/02/20 01:30 18 90 09/02/20 00:30 18 96 09/01/20 23:40 36.8 C 77 18 123/76 98 09/01/20 21:05 16 98 09/01/20 20:10 18 99 09/01/20 19:10 36.4 C L 76 16 102/66 100 09/01/20 19:05 16 100 09/01/20 18:15 16 97 Medications Administered <Joan Connor MD - Last Filed: 09/02/20 09:20> Co-Signing Physician Notes Resident Physician Supervision Note: I interviewed and examined the patient. Discussed with Dr. Huff and agree with findings and plan as documented in the note. Any exceptions or clarifications are listed here: Meeting all pp milestones, doing well. Basal rate now ~50% of level, doing well with BG 90s-100s on current diet. Continue routine pp care Documented By: Joan Connor MD
[2020-09-02 06:39] LABS: Basophils # (auto) 0.02 K/uL (0-0.2); Basophils % (auto) 0.2 %; Eosinophils # (auto) 0.16 K/uL (0-0.5); Eosinophils % (auto) 1.7 %; Hemoglobin 9.6 g/dL (12.0-16.0); Immature Granulocytes # (auto) 0.07 K/uL (0.00-0.02); Immature Granulocytes % (auto) 0.7 %; Lymphocytes # (auto) 1.14 K/uL (1.2-3.4); Mean Corpuscular Hemoglobin 24.2 pg (25-34); Mean Corpuscular Volume 75.6 fL (80-100); Mean Platelet Volume 11.2 fL (7.4-10.4); Monocytes # (auto) 0.94 K/uL (0.11-0.59); Monocytes % (auto) 9.9 %; Neutrophils % (auto) 75.5 %; Platelet Count 207 K/uL (130-400); RDW Coefficient of Variation 15.7 % (11.5-14.5); RDW Standard Deviation 43.6 fL (36.4-46.3); Red Blood Count 3.97 M/uL (4.2-5.4); White Blood Count 9.53 K/uL (4.8-10.8)
[2020-09-02] MEDS: DOCUSATE SODIUM 100 MG CAP PO SCH ×2 (08:48→20:36)
[2020-09-02] MEDS: SIMETHICONE 80 MG CHEW PO SCH ×4 (08:48→20:36)
[2020-09-02] MEDS: FERROUS SULFATE 325 MG TAB PO SCH (08:48)
[2020-09-02] MEDS: PRENATAL VITAMIN 1 TAB PO SCH (08:48)
[2020-09-02] MEDS: NovoLOG INSULIN PUMP SCH ×4 (09:32→22:00)
[2020-09-02] MEDS: oxyCODONE/ACETAMINOPHEN 5mg/325mg TAB PO PRN ×4 (10:29→23:40)
[2020-09-02] MEDS: IBUPROFEN 600 MG TAB PO PRN ×4 (10:30→23:40)
[2020-09-02] MEDS ORDERED: bisacodyL 5 MG TABEC PO SCH (20:00)
[2020-09-03] MEDS: IBUPROFEN 600 MG TAB PO PRN ×2 (03:34→08:19)
[2020-09-03] MEDS: oxyCODONE/ACETAMINOPHEN 5mg/325mg TAB PO PRN ×2 (03:34→08:18)
[2020-09-03] MEDS: LEVOTHYROXINE SODIUM 125 MCG TABLET PO SCH (06:03)
[2020-09-03 06:36] LABS: Hemoglobin 8.6 g/dL (12.0-16.0)
[2020-09-03] MEDS: SIMETHICONE 80 MG CHEW PO SCH (08:18)
[2020-09-03] MEDS: DOCUSATE SODIUM 100 MG CAP PO SCH (08:19)
[2020-09-03] MEDS: PRENATAL VITAMIN 1 TAB PO SCH (08:19)
[2020-09-03] MEDS: FERROUS SULFATE 325 MG TAB PO SCH (08:19)
[2020-09-03] MEDS: NovoLOG INSULIN PUMP SCH (08:21)
[2020-09-03] MEDS ORDERED: bisacodyL 10 MG SUPP PR PRN (08:38)
--- NOTE | 2020-09-03 09:01 | Obstetrical Progress Note ---
Date of Service September 03, 2020 Assessment & Plan (1) Diabetes type 1, controlled: (2) state: Subjective Ambulation: ambulating normally Voiding: no voiding problems Passing Gas:: Yes Diet Tolerance:: regular diet Lochia:: Small Feeding Type:: breast feeding Physical Exam Constitutional WD/WN, vitals as above Eyes PERRL, conjunctivae normal, anicteric sclerae Neck normal visual inspection Respiratory normal respiratory effort and able to speak in complete sentences; no respiratory distress and no labored breathing Cardiovascular Rate/Rhythm: regular rate and regular rhythm Extremities: no edema Chest (Breasts) Chest: normal inspection of chest Gastrointestinal (Abdomen) Inspection/Auscultation: abdomen normal to inspection Soft, postgravid Psychiatric A+Ox3, euthymic affect Genitourinary OB Exam Abdomen: + fundal height Fundus: + firm and + relation to umbilicus (fundus just below umbilicus); not tender Results & Data ([facility]) Vital Signs (Past 12 Hours) Vital Signs Temp Pulse Resp BP Pulse Ox 09/03/20 07:16 98.1 F 68 18 127/77 99 09/02/20 23:20 97.7 F 75 16 116/76 98
--- NOTE | 2020-09-04 08:17 | Discharge Summary ---
Date of Service September 04, 2020 Admission HPI Per Admitting Provider 29 y/o at 39 wga w/ ADIAN 3/4 by LMP 5/28 c/w 1st tri who presents for elective repeat CS preop. +FM; denies ctx, LOF, VB. 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 Hx: G1 2018 pLTCS for breech, ICP G2 current menarche 11, 28 day cycles pap 01/2020 neg cotest no hx abnls no hx STI Admission Exam (Per Admitting) Constitutional WD/WN, vitals as above Respiratory normal respiratory effort; no respiratory distress and no labored breathing Psychiatric A+Ox3, euthymic affect Genitourinary NST reactive Discharge Data Consultations 09/01/20 05:36 Consult Anesthesiology Stat Procedures Performed Operation Date: 09/01/20 07:30 Actual Procedures p Vacuum Assisted Repeat Low Transverse Section - Joan Connor MD Hospital Course (1) state: See operative report for delivery details. Pt did well in the period. Hospitalist team was consulted for assistance in managing pt's BG for T1DM dx. Pt decreased her basal insulin dosing and was able to well manage her BG. She was found to be stable for discharge on POD2. Coding Level of Care Code None Diagnoses state Z39.2
== END 2020-09-03 11:50 | disposition home or self-care (01) ==
LOC: 4S1 05:35 → EDSTATUS 10:30 → 4S2 11:45

== ENCOUNTER 2023-12-31 12:11 | Inpatient (IN) ==
--- NOTE | 2023-12-29 15:01 | Anesthesiology Consultation ---
Date of Service December 29, 2023 Assessment & Plan (1) Encounter for pre-operative examination: Chart Review Chart Review: entry level sales representative initiated Insulin pump and Continuous Glucose Monitor current in place (patient did keep both in place during previous ) - BSG to anesthesiologist and OB discretion day of procedure (patient with Type I DM) -Infectious Disease screening: Per PAT nursing assessment on 12/29/23. No known infectious disease contacts in past 10 days or current infectious disease symptoms. No recent travel outside the country. Patient seen by [facility] 09/30/23= seen for assessment and ECHO due to patient having Type I DM. Currently under good control. Baby's heart appears structurally normla. No further follow up in the cardiology clinic is necessary prior to delivery unless issues arise. No contraindications to delivering at [facility] from cardiac standpoint. [facility] could be consulted at at any time should there by concerns with baby's CV status. Repeat 09/01/20= Done under SAB at L3 with 1 attempt... "Sitting for spinal. Notified that pts glucometer at 74 and dropping. Started D5. Spinal in... glucometer now reading 54 and pt with symptoms. Given Zofran and D50. 0802= 239 BG on hospital glucometer. Pt's basal rate restored (34/hr)..." History Surgery Operation Date: 01/12/24 08:50 Proposed Procedures p Section (Delivery of Baby Through Abdominal Incision) - Adela Chamberlain MD, FACOG s With Bilateral Tubal Ligation - Adela Chamberlain MD, FACOG Height/Weight Height: 5 ft 6 in Weight: 112.491 kg Allergies Allergy/AdvReac Type Severity Reaction Status Date / Time Bactrim Allergy Mild GI SYMPTOMS Verified 02/09/18 10:23 sulfamethoxazole Allergy Mild GI SYMPTOMS Verified 12/29/23 12:38 trimethoprim Allergy Mild GI SYMPTOMS Verified 12/29/23 12:38 Medications Home Medications Medication Instructions Recorded Confirmed Last Taken insulin pump cartridge,automated #1 ea 05/26/23 12/25/23 Unknown dose,BT with controller subcutaneous (Omnipod 5 G6 Intro Kit (Gen 5) subcutaneous cartridge with controller) vit-iron fum-folic ac 2 gummy PO DAILY 06/02/23 12/29/23 Unknown [ Tablet] blood-glucose sensor (Dexcom G6 08/01/23 12/25/23 Unknown Sensor device) insulin pump cart,automated,BT #30 ea 09/03/23 12/25/23 Unknown (Omnipod 5 G6 Pods (Gen 5) subcutaneous cartridge) Breast Pump #1 ea 11/12/23 12/25/23 Unknown glucagon 1 mg solution for 1 mg IM ONCE #1 ea 11/27/23 12/29/23 Unknown injection (Glucagon Emergency Kit) insulin aspart U-100 100 unit/mL See Rx Instructions subcut 11/27/23 12/29/23 Unknown (3 mL) subcutaneous pen (Novolog .COMPLEX #30 mL FlexPen U-100 Insulin aspart) insulin syringe-needle U-100 1 mL #100 ea 11/27/23 12/25/23 Unknown 30 gauge x 1/2" (BD Insulin Syringe Ultra-Fine) pen needle, diabetic 32 gauge x #150 ea 11/27/23 12/25/23 Unknown 5/32" (BD Ultra-Fine Brandi Pen Needle) Semglee(insulin glarg-yfgn)Pen 100 50 unit (0.5 mL) subcut DAILY #15 12/02/23 12/29/23 Unknown unit/mL (3 mL) subcutaneous mL (insulin glargine-yfgn) insulin aspart U-100 100 unit/mL See Rx Instructions subcut 12/05/23 12/29/23 Unknown subcutaneous solution (Novolog .COMPLEX #60 mL U-100 Insulin aspart) flash glucose sensor (FreeStyle #3 ea 12/08/23 12/25/23 Unknown Cam 2 Sensor kit) cholecalciferol (vitamin D3) 50 50 mcg PO QAM 12/29/23 12/29/23 Unknown mcg (2,000 unit) capsule levothyroxine 200 mcg tablet 200 mcg PO QAM 12/29/23 12/29/23 Unknown Past Medical History Medical History Acid reflux hx Diabetes type 1, controlled Managing with CGM and pump History of anesthesia reaction at the onset of the procedure ( 09/01/20 at [facility]), blood sugar dropped and IV glucose required Hypothyroidism Insulin pump in place Vitiligo Past Family History Family History Mother Cancer Malignant neoplasm of brain Grandfather (Maternal) Myocardial infarction Colon cancer Father Depression Dyslipidemia Brother Depression Grandfather (Paternal) Heart disease Grandmother (Maternal) Heart disease Anaplastic astrocytoma Thyroid disease Uncle Stroke Denies family history of Ovarian cancer Prostate cancer Diabetes Breast cancer Lung cancer Colorectal cancer Past Surgical History Surgical History Previous back surgery ~2007, microdiscectomy L5- S1 S/P section x2 [place] teeth extracted Social History Smoking Status: Never smoker Do You Dip or Chew Tobacco: No Hx Alcohol Use: Yes (not while , socially in the past) Alcohol type: beer and wine Hx Substance Use: No substance use type: does not use Lab Results Anesthesia Preop Results Results Anesthesia Widget: Hgb 9.2 g/dl (12.0-16.0) L 11/11/23 Hct 29.8 % (37.0-47.0) L 11/11/23 TSH 0.271 uIu/ml (0.300-4.500) L 11/11/23 HA1c 6.2 % (4.5-5.6) H 11/11/23 Testing Laboratory Results Labs will be 62 days old by day of 12/11/23= URINE CULTURE: More than three types of organisms present, all moderate counts mixed probable skin meggan Electrocardiogram Date: 08/08/23 SR at 90bpm unconfirmed Echocardiogram Date: 08/22/23 EF: 55-60% LV Function: normal RWMA: + none Other Findings: no LVH Valvular Disease: + no significant valvular disease
--- NOTE | 2023-12-31 12:26 | History & Physical Report ---
Date of Service December 31, 2023 Assessment & Plan (1) 37 weeks gestation of : (2) H/O section: (3) Polyhydramnios: (4) Obesity (BMI 30-39.9): (5) Diabetes in : Plan Admit, iv, labs. Last ate at 945am chikfila. Now npo. She is using her own pump and needs novalog elisabeth, pharmacy called. sending. she will be delayed for c/s for 6hr from food if baby stable. she does want tubal with her planned c/s. Rec fluid bolus once iv in. Aware that her indication is severe polyhydramnios with LGA and suspected poor dm control. Admission and Anticipated Discharge Date Admission Date: December 31, 2023 History of Present Illness Chief Complaint: severe polyhydramnios, 37wks ega, DM Primary Care Provider: Ivone Cole MD 33yo at 37w2d ega with cc of being sent from office with severe polyhydramnios in background history of pregestational DM. She was present for a preop visit with me for planned c/s on january 11 with history of prior c/s. She had dvp today at 18.9cm. Noted good fm. EFW at last check >98%. I called [facility] to discuss her case and they agree with indication for delivery now due to severe polyhydramnios with likely poorly controlled DM in . Patient was on monitor briefly and sent to LD. PNC c/b 1. AMA 2. DM 3. Severe polyhydramnios 4. Desires tubal sterilization with distal salpingectomies. PNL rhpos, ri, gbs neg OBH: c/s x 2 GYNH: nl paps, no stds. Allergies Allergy/AdvReac Type Severity Reaction Status Date / Time Bactrim Allergy Mild GI SYMPTOMS Verified 02/09/18 10:23 sulfamethoxazole Allergy Mild GI SYMPTOMS Verified 12/31/23 10:22 trimethoprim Allergy Mild GI SYMPTOMS Verified 12/31/23 10:22 Home Medications Medication Instructions Recorded Confirmed Type insulin pump cartridge,automated #1 ea 05/26/23 12/31/23 Rx dose,BT with controller subcutaneous (Omnipod 5 G6 Intro Kit (Gen 5) subcutaneous cartridge with controller) vit-iron fum-folic ac 2 gummy PO DAILY 06/02/23 12/31/23 History [ Tablet] blood-glucose sensor (Dexcom G6 08/01/23 12/31/23 History Sensor device) insulin pump cart,automated,BT #30 ea 09/03/23 12/31/23 Rx (Omnipod 5 G6 Pods (Gen 5) subcutaneous cartridge) Breast Pump #1 ea 11/12/23 12/31/23 Rx glucagon 1 mg solution for 1 mg IM ONCE #1 ea 11/27/23 12/31/23 Rx injection (Glucagon Emergency Kit) insulin aspart U-100 100 unit/mL See Rx Instructions subcut 11/27/23 12/31/23 Rx (3 mL) subcutaneous pen (Novolog .COMPLEX #30 mL FlexPen U-100 Insulin aspart) insulin syringe-needle U-100 1 mL #100 ea 11/27/23 12/31/23 Rx 30 gauge x 1/2" (BD Insulin Syringe Ultra-Fine) pen needle, diabetic 32 gauge x #150 ea 11/27/23 12/31/23 Rx 5/32" (BD Ultra-Fine Brandi Pen Needle) Semglee(insulin glarg-yfgn)Pen 100 50 unit (0.5 mL) subcut DAILY #15 12/02/23 12/31/23 Rx unit/mL (3 mL) subcutaneous mL (insulin glargine-yfgn) insulin aspart U-100 100 unit/mL See Rx Instructions subcut 12/05/23 12/31/23 Rx subcutaneous solution (Novolog .COMPLEX #60 mL U-100 Insulin aspart) flash glucose sensor (FreeStyle #3 ea 12/08/23 12/31/23 Rx Cam 2 Sensor kit) cholecalciferol (vitamin D3) 50 50 mcg PO QAM 12/29/23 12/31/23 History mcg (2,000 unit) capsule levothyroxine 200 mcg tablet 200 mcg PO QAM 12/29/23 12/31/23 History Patient History Medical History Acid reflux hx Diabetes type 1, controlled Managing with CGM and pump History of anesthesia reaction at the onset of the procedure ( 09/01/20 at [facility]), blood sugar dropped and IV glucose required Hypothyroidism Insulin pump in place Vitiligo Surgical History Previous back surgery ~2007, microdiscectomy L5- S1 S/P section x2 [place] teeth extracted Family History Mother Cancer Malignant neoplasm of brain Grandfather (Maternal) Myocardial infarction Colon cancer Father Depression Dyslipidemia Brother Depression Grandfather (Paternal) Heart disease Grandmother (Maternal) Heart disease Anaplastic astrocytoma Thyroid disease Uncle Stroke Denies family history of Ovarian cancer Prostate cancer Diabetes Breast cancer Lung cancer Colorectal cancer Social History (Updated 06/02/23 @ 15:13 by Idalia Proctor RN) Smoking Status: Never smoker Second Hand Exposure: No; Do You Dip or Chew Tobacco: No; Tobacco Cessation Education Requested by Patient: No Hx Alcohol Use: No Hx Substance Use: No Preferred Language: Malaysian Communication Ability: Effective Visual Impairment: Limited Hearing Ability: Normal R&D Lab Technician Required: No Beliefs That Will Affect Care: None marital status: marital status details: Crow (34) [phone] Current Living Situation: Spouse Current Living Situation Comment: Crow- , kids (2) current occupational status: employed current occupation: [employer] How many Children do You have: 2 Other Information That Helps Us Care for You: No Feels Safe at Home: Yes Safety Concerns: Feels Safe At This Time Childhood Exposure to Second-Hand Smoke: No caffeine: Yes Dental Care, Regularly: Yes Physical Activity Frequency: 1-2 Times per Week Physical Activity Frequency Comment: walks dogs Seatbelt Use: always Sunscreen Use: Yes (most of the time) Assistive Devices: None Review of Systems as per Subjective / HPI Physical Exam Constitutional: WD/WN, vitals as above Respiratory: normal respiratory effort, lungs clear to auscultation Cardiovascular: Rate/Rhythm: regular rate and regular rhythm Gastrointestinal (Abdomen): soft gravid nt Musculoskeletal: tr edema nontender calves Neurologic: grossly normal Psychiatric: A+Ox3, euthymic affect Genitourinary: OB Exam Monitor Tracing: + external FHT monitor used, + external uterine monitor used (no ctx), + category I (150 baseline) and + normal FHT variability Coding Level of Care Code None Diagnoses 37 weeks gestation of Z3A.37 H/O section Z98.891 Polyhydramnios O40.9XX0 Obesity (BMI 30-39.9) E66.9 Diabetes in O24.919
[2023-12-31] MEDS: LACTATED RINGER'S 1,000 ML IV SCH ×2 (13:05→14:24)
[2023-12-31] MEDS ORDERED: CARBOHYDRATES FOR HYPOGLYCEMIA PO PRN (13:09)
[2023-12-31] MEDS ORDERED: GLUCAGON FOR INJ 1 MG VIAL SQ PRN (13:09)
[2023-12-31] MEDS ORDERED: GLUCOSE 40% GEL 15 GM TUBE PO PRN (13:09)
[2023-12-31] MEDS ORDERED: DEXTROSE 50% 50 ML SYRINGE IV PRN (13:09)
[2023-12-31 13:14] LABS: Basophils # (auto) 0.04 K/uL (0.00-0.20); Basophils % (auto) 0.5 %; Eosinophils # (auto) 0.04 K/uL (0.00-0.50); Eosinophils % (auto) 0.5 %; Hematocrit (blood only) 27.3 % (37.0-47.0); Hemoglobin 8.2 g/dl (12.0-16.0); Immature Granulocytes # (auto) 0.13 K/uL (0.01-0.20); Immature Granulocytes % (auto) 1.5 %; Lymphocytes # (auto) 1.35 K/uL (1.20-3.40); Lymphocytes % (auto) 15.2 %; Mean Corpuscular Hemoglobin 21.1 pg (25.0-34.0); Mean Corpuscular Volume 70.4 fL (80.0-100.0); Monocytes # (auto) 0.57 K/uL (0.11-0.59); Monocytes % (auto) 6.4 %; Neutrophils # (auto) 6.74 K/uL (1.40-6.50); Neutrophils % (auto) 75.9 %; Platelet Count 259 K/uL (130-400); RDW Standard Deviation 40.4 fL (36.4-46.3); Red Blood Count 3.88 M/uL (4.20-5.40); White Blood Count 8.87 K/ul (4.8-10.8)
[2023-12-31] MEDS ORDERED: SODIUM CHLORIDE 0.9% 250 ML IV PRN ×2 (13:33→15:13)
[2023-12-31] MEDS: GLUCOSE 10 TAB/TUBE PO STA (14:24)
[2023-12-31] MEDS: GLUCOSE 10 TAB/TUBE PO PRN (15:07)
[2023-12-31] MEDS: CITRIC ACID/SODIUM CITRATE 15 ML UDC PO SCH (16:44)
--- NOTE | 2023-12-31 17:15 | History & Physical Bridge Note ---
Date of Service December 31, 2023 History & Physical Bridge Note I have examined the patient, reviewed the History & Physical and in the interval since the performance of the History & Physical I have noted the following changes of clinical significance: no changes noted I reviewed consent with patient, questions answered. She would like to undergo bilateral salpingectomy for permanent sterilization. We discussed glucose management - she feels most comfortable managing her own blood sugars, and plans to use her Dexcomm and her own insulin pump.
[2023-12-31] MEDS: ceFAZolin 3000MG 3,000 MG/72.5 ML BAG IV SCH (17:52)
[2023-12-31] MEDS ORDERED: MoRPHine SULFATE PF 1 MG/ML 10 ML AMP/VIAL ONE (18:00)
[2023-12-31] MEDS ORDERED: NALBUPHINE HCL 5 MG in SYRINGE 0 ML IV PRN (18:46)
[2023-12-31] MEDS ORDERED: NALOXONE HCL 1 MG in SODIUM CHLORIDE 0.9% 1,000 ML IV PRN (18:46)
[2023-12-31] MEDS ORDERED: PROMETHAZINE HCL 6.25 MG in SODIUM CHLORIDE 0.9% 50 ML IV PRN (18:46)
[2023-12-31] MEDS ORDERED: MoRPHine SULFATE 2 MG/ML CARP IV PRN (18:46)
[2023-12-31] MEDS ORDERED: MEPERIDINE HCL 25 MG/ML CARP/VIAL IV PRN (18:46)
[2023-12-31] MEDS ORDERED: NALOXONE HCL 0.4 MG/1 ML VIAL/CARP IV PRN (18:46)
[2023-12-31] MEDS ORDERED: HYDROmorphone INJ 0.5 MG/0.5 ML SYR IV PRN (18:46)
[2023-12-31] MEDS ORDERED: MoRPHine SULFATE PF 1 MG/ML 10 ML AMP/VIAL INT SPINAL ONE (18:46)
[2023-12-31] MEDS ORDERED: NALOXONE HCL 0.08 MG in SYRINGE 1.8 ML IV PRN (18:46)
[2023-12-31] MEDS ORDERED: ePHEDrine sulfate 50 MG/ML AMP IV PRN (18:46)
[2023-12-31] MEDS ORDERED: LACTATED RINGER'S 500 ML IV PRN (18:46)
--- NOTE | 2023-12-31 18:46 | Anesthesiology Consultation ---
Date of Service December 31, 2023 Assessment & Plan Chart Review Chart Review: Acceptable Risk for Surgery and Patient NOT seen in Pre Admission Testing Consults Requested none ASA ASA2 Proposed Anesthesia Anesthesia Type: Spinal (+intrathecal narcotics) Risk / Benefits Reviewed With: PT / POA / Parent / Guardian, Accepts Plan and Informed Consent Obtained History Surgery Operation Date: 12/31/23 17:20 Proposed Procedures p Section in LD with bilateral tubal ligation - Ivanna Clark, Operation Date: 01/12/24 07:30 Proposed Procedures p Section (Delivery of Baby Through Abdominal Incision) - Adela Chamberlain MD, FACOG s With Bilateral Tubal Ligation - Adela Chamberlain MD, FACOG Height/Weight Height: 5 ft 6 in Weight: 116.12 kg Allergies Allergy/AdvReac Type Severity Reaction Status Date / Time Bactrim Allergy Mild GI SYMPTOMS Verified 02/09/18 10:23 sulfamethoxazole Allergy Mild GI SYMPTOMS Verified 12/31/23 10:22 trimethoprim Allergy Mild GI SYMPTOMS Verified 12/31/23 10:22 Medications Home Medications Medication Instructions Recorded Confirmed Last Taken insulin pump cartridge,automated #1 ea 05/26/23 12/31/23 Unknown dose,BT with controller subcutaneous (Omnipod 5 G6 Intro Kit (Gen 5) subcutaneous cartridge with controller) vit-iron fum-folic ac 2 gummy PO DAILY 06/02/23 12/31/23 Unknown [ Tablet] blood-glucose sensor (Dexcom G6 08/01/23 12/31/23 Unknown Sensor device) insulin pump cart,automated,BT #30 ea 09/03/23 12/31/23 Unknown (Omnipod 5 G6 Pods (Gen 5) subcutaneous cartridge) Breast Pump #1 ea 11/12/23 12/31/23 Unknown glucagon 1 mg solution for 1 mg IM ONCE #1 ea 11/27/23 12/31/23 Unknown injection (Glucagon Emergency Kit) insulin aspart U-100 100 unit/mL See Rx Instructions subcut 11/27/23 12/31/23 Unknown (3 mL) subcutaneous pen (Novolog .COMPLEX #30 mL FlexPen U-100 Insulin aspart) insulin syringe-needle U-100 1 mL #100 ea 11/27/23 12/31/23 Unknown 30 gauge x 1/2" (BD Insulin Syringe Ultra-Fine) pen needle, diabetic 32 gauge x #150 ea 11/27/23 12/31/23 Unknown 32" (BD Ultra-Fine Brandi Pen Needle) Semglee(insulin glarg-yfgn)Pen 100 50 unit (0.5 mL) subcut DAILY #15 12/02/23 12/31/23 Unknown unit/mL (3 mL) subcutaneous mL (insulin glargine-yfgn) insulin aspart U-100 100 unit/mL See Rx Instructions subcut 12/05/23 12/31/23 Unknown subcutaneous solution (Novolog .COMPLEX #60 mL U-100 Insulin aspart) flash glucose sensor (FreeStyle #3 ea 12/08/23 12/31/23 Unknown Cam 2 Sensor kit) cholecalciferol (vitamin D3) 50 50 mcg PO QAM 12/29/23 12/31/23 Unknown mcg (2,000 unit) capsule levothyroxine 200 mcg tablet 200 mcg PO QAM 12/29/23 12/31/23 Unknown Active Medications Generic Name Dose Route Start Last Admin Trade Name Freq PRN Reason Stop Dose Admin Citric Acid/Sodium Citrate 30 ml 01/01/24 06:00 12/31/23 16:44 Citric Acid/Sodium Citrate 15 Ml Udc PO 01/01/24 06:01 30 ml PREOP ANTIONE Administration Glucose 4 - 8 tab 12/31/23 13:09 12/31/23 15:07 Glucose 10 Tab/Tube PO 01/30/24 13:08 4 tab UD PRN Administration Hypoglycemia Treatment Protocol Cefazolin Sodium 3,000 mg in 72.5 mls @ 130 mls/hr 12/31/23 06:00 12/31/23 17:52 Ancef 3000mg IV 01/01/24 05:59 130 mls/hr PREOP ANTIONE Administration Protocol Lactated Ringer's 1,000 mls @ 125 mls/hr 12/31/23 13:30 12/31/23 14:24 Lr IV 01/30/24 13:29 125 mls/hr .Q8H ANTIONE Administration Past Medical History Medical History Acid reflux hx Diabetes type 1, controlled Managing with CGM and pump History of anesthesia reaction at the onset of the procedure ( 09/01/20 at [facility]), blood sugar dropped and IV glucose required Hypothyroidism Insulin pump in place Vitiligo Exercise / Class Metabolic Activity II 4-5 Yardwork/Stairs/Walk up hill Past Family History Family History Mother Cancer Malignant neoplasm of brain Grandfather (Maternal) Myocardial infarction Colon cancer Father Depression Dyslipidemia Brother Depression Grandfather (Paternal) Heart disease Grandmother (Maternal) Heart disease Anaplastic astrocytoma Thyroid disease Uncle Stroke Denies family history of Ovarian cancer Prostate cancer Diabetes Breast cancer Lung cancer Colorectal cancer Past Surgical History Surgical History Previous back surgery ~2007, microdiscectomy L5- S1 S/P section x2 [place] teeth extracted Past Anesthesia History No Hx of Anesthesia Complications and No Family Hx of Anesthesia Complications History of PONV No Hx of PONV and No Hx of Motion Sickness Social History Smoking Status: Never smoker Do You Dip or Chew Tobacco: No Hx Alcohol Use: No Alcohol type: beer and wine Hx Substance Use: No substance use type: does not use Physical Exam Vital Signs Last Vital Signs Temp 36.8 C 12/31/23 12:43 Pulse 90 12/31/23 12:46 Resp 20 12/31/23 12:43 BP 137/88 12/31/23 12:46 ENMT Mouth: no dentition abnormality Thyromental Distance: > or= 3.5 Finger Breadths Mallampati Class: II Neck normal visual inspection Respiratory normal respiratory effort Auscultation: lungs clear to auscultation bilaterally Cardiovascular Rate/Rhythm: regular rate and regular rhythm Psychiatric Orientation: alert Testing Laboratory Results 12/31/23 12:40 Blood Type O Positive 12/31/23 12:40 Antibody Screen NEGATIVE 12/31/23 12:40 12/31/23 12/31/23 15:05 14:12 POC Glucose 58 L* 51 L* Electrocardiogram Date: 08/08/23 SR at 90bpm unconfirmed Echocardiogram Date: 08/22/23 EF: 55-60% LV Function: normal RWMA: + none Other Findings: no LVH Valvular Disease: + no significant valvular disease
[2023-12-31 18:55] LABS: CO2 Cord Arterial Blood 65 mmHg (39.1-73.5); HCO3 Cord Arterial Blood 28 mmol/L (19.7-28.5); Oxygen Sat Cord Arterial Blood < 60.0 % (<60); PO2 Cord Arterial Blood < 20 mmHg (4.1-31.7); pH Cord Arterial Blood 7.24 (7.1-7.38)
[2023-12-31 18:56] LABS: Base Excess Cord Venous Blood -3.1 mEq/L (-7.7-1.9); Cord Venous Blood HCO3 23 mmol/L (18.4-26.8); Cord Venous Blood PCO2 45 mmHg (30.4-57.2); Cord Venous Blood PO2 24 mmHg (14.1-43.3); Cord Venous Blood pH 7.32 (7.20-7.44); O2 Saturation Cord Venous Bld < 60.0 % (<68)
[2023-12-31] MEDS ORDERED: SODIUM CHLORIDE 0.9% 1,000 ML IV SCH (19:00)
[2023-12-31] MEDS ORDERED: DC INTRASPINAL MORPHINE SCH (19:00)
[2023-12-31] MEDS ORDERED: NO NARCOTICS OR SEDATIVES SCH (19:00)
[2023-12-31] MEDS ORDERED: OXYTOCIN 10 UNITS/ML VIAL ONE (19:15)
[2023-12-31] MEDS ORDERED: PHENYLEPHRINE HCL 25 MG/250 ML NSS IV ONE (19:15)
[2023-12-31] MEDS ORDERED: KETOROLAC 30 MG/ML VIAL ONE (19:15)
--- NOTE | 2023-12-31 19:23 | Operative Report ---
Post Operative Report Pre & Post Diagnosis Operation Date: 01/12/24 07:30 Pre: 37w, polyhydramnios, Type 1 Diabetes, history of section x 2, desires sterilization Post: same I identified the patient and participated in the time-out.: Yes Procedure Operation Date: 01/12/24 07:30 Repeat Low Transverse section with bilateral tubal sterilization Surgeon Ivanna Clark, DO Assistant Paul Chamberlain MD Quantitative Blood Loss (QBL) 567 Findings Consistent with Post-Op Diagnosis Viable male , Apgars 8/9, Weight 10#4 oz Specimens cord blood, cord gas, placenta Drains chacon clear yellow Anesthesia Type Spinal Complications none Disposition Accompanied Patient To Recovery: Yes Indications 33yo @ 37 2/7, with polyhydramnios and MFM recommendation for delivery. History of section x 2, desires tubal sterilization, Type 1 diabetes, AMA, hypothyroidism. Description of Procedure The patient was seen in her labor and delivery room, risks benefits and alternatives to surgery were reviewed. Informed consent obtained. Questions were answered. She was taken to the operating room, spinal anesthesia was administered. She was then prepared and draped in the usual sterile fashion in the supine position with a leftward tilt. Timeout was confirmed. A Pfannenstiel skin incision was made with a scalpel, and carried through to the underlying layer of fascia. Fascia was nicked at midline, and this incision was extended bilaterally. The superior aspect of the fascial incision was grasped with Elo clamps x2, elevated off the underlying rectus abdominis muscles, and dissected sharply and bluntly. In similar fashion, the inferior aspect of the fascial incision was dissected. The rectus abdominis muscles were , and the peritoneum was entered bluntly digitally. This was extended bilaterally. The bladder flap was taken down carefully using Metzenbaum scissors. Using a new scalpel, a low transverse uterine incision was created. Clear amniotic fluid - very large amount noted. The was delivered from a cephalic presentation. The head delivered, followed by shoulders and body. Spontaneous cry on the field. The cord was doubly clamped and cut, and the was handed off to the waiting physiotherapist's assistant. A segment was retained for cord gases. Cord blood was obtained. The placenta was delivered spontaneously intact. The uterus was exteriorized, and cleared of all clots and debris. The hysterotomy incision was reapproximated using 0 Vicryl in a running locked stitch. A second layer of the same suture was used to imbricate the incision. Posterior uterus was evaluated and normal. Tubal performed - tubes grasped with [place], identified to fimbria, and transected from mesosalpinx with Ligasure. Sent to path. The uterus was returned to the abdomen, and gutters were cleared of clots and debris. Excellent hemostasis was observed. The fascial incision was reapproximated using 0 Vicryl in a running stitch. The subcutaneous tissue was irrigated, and reapproximated using 2-0 plain gut in a running stitch. The skin was reapproximated using 4-0 Vicryl in a running subcuticular stitch. Steri-Strips and a bandage were applied. The patient tolerated the procedure well, and will be taken to the recovery area in stable and good condition. I attest to the content of the Intraoperative Record and any orders documented therein. Any exceptions are noted below. OB Procedure Charges [id number] Add on Tubal for C/S
--- NOTE | 2023-12-31 19:26 | Anesthesiology Progress Note ---
Date of Service December 31, 2023 Anesthesia Post Procedure Vital Signs Vital Signs: Temp Pulse Resp BP Pulse Ox 12/31/23 19:25 74 93 12/31/23 19:21 79 100 12/31/23 19:20 70 106/58 L 12/31/23 12:46 90 137/88 12/31/23 12:43 36.8 C 90 20 137/88 Transfer of Care Handoff Completed per policy Notes Mental Status: alert / awake / arousable Nausea / Vomiting: adequately controlled Pain: adequately controlled Airway Patency, RR, SpO2: stable & adequate BP & HR: stable & adequate Hydration State: stable & adequate Neuraxial Anesthesia: was administered and sensory block is resolving Anesthetic Complications: no major complications apparent and Pt Satisfied with anesthetic care
[2023-12-31] MEDS ORDERED: BENZOCAINE 20% SPRY 85 APPLN/85 GM CAN EXT PRN (19:51)
[2023-12-31] MEDS ORDERED: LACTATED RINGER'S 1,000 ML IV SCH (19:51)
[2023-12-31] MEDS ORDERED: DIPHTHER/TETAN/PERTUS Vaccine (Tdap, Adol/Adult) 0.5mL IM ONE (19:51)
[2023-12-31] MEDS ORDERED: HYDROCORTISONE ACETATE 25 MG SUPP PR PRN (19:51)
[2023-12-31] MEDS ORDERED: MAGNESIUM HYDROXIDE SUSP 30 ML UDC PO PRN (19:51)
[2023-12-31] MEDS ORDERED: SENNA 8.6 MG TAB PO PRN (19:51)
[2023-12-31] MEDS: OXYTOCIN 30 UNITS/LR 1,003 ML IV SCH (22:53)
[2023-12-31] MEDS: DOCUSATE SODIUM 100 MG CAP PO SCH (23:09)
[2023-12-31] MEDS: SIMETHICONE 80 MG CHEW PO SCH (23:10)
[2023-12-31] MEDS: ONDANSETRON INJ 2 MG/ML 2 ML VIAL IV PRN (23:10)
[2024-01-01] MEDS: KETOROLAC 30 MG/ML VIAL IV PRN (02:51)
[2024-01-01] MEDS: diphenhydrAMINE 50 MG/ML VIAL IV PRN (02:55)
--- NOTE | 2024-01-01 06:20 | Obstetrical Progress Note ---
Date of Service <Ben Sofia DO - Last Filed: 01/01/24 06:23> January 01, 2024 Assessment & Plan <Ben Sofia DO - Last Filed: 01/01/24 06:23> (1) Encounter for assessment: Plan 33 y/o POD#1: Eating well, Chacon catheter in place, limited ambulation Vitals reviewed, WNL Pain well controlled with Toradol Routine post-op care - OOB, ambulation, diet progression as tolerated Will have 6 week follow up with Dr. Clark <Ivanna Clark, - Last Filed: 01/01/24 08:45> (1) Encounter for assessment: Subjective <Ben Sofia DO - Last Filed: 01/01/24 06:23> Ambulation: limited ambulation (has stood up but not yet ambulated) Voiding: chacon catheter in place Passing Gas:: No Diet Tolerance:: regular diet Lochia:: Moderate Feeding Type:: breast feeding pain well controlled with Toradol Review of Systems -Denies fever or chills -Denies dyspnea, chest pain, or palpitations -Denies dysuria -Denies headache or changes in vision Physical Exam <Ben Sofia DO - Last Filed: 01/01/24 06:23> General: Alert and oriented. No acute distress Cardiac: Regular rate and rhythm, no murmurs appreciated Respiratory: Lungs clear to auscultation bilaterally, No increased work of breathing Abdominal: Soft, non-tender, non-distended. Bowel sounds present. Uterus: Uterine fundus firm, palpable below umbilicus Extremities: SCDs in place. Results & Data <Ben Sofia DO - Last Filed: 01/01/24 06:23> Vital Signs (Past 12 Hours) Vital Signs Temp Pulse Pulse Resp BP BP Pulse Ox 01/01/24 05:14 18 98 01/01/24 04:49 16 96 01/01/24 03:00 18 99 01/01/24 03:00 36.7 C 84 18 117/75 99 01/01/24 02:30 18 97 01/01/24 01:15 18 97 01/01/24 00:45 16 98 12/31/23 23:15 17 99 12/31/23 22:15 36.5 C 63 18 128/75 100 06/26/24 22:15 18 100 12/31/23 21:36 63 131/63 100 12/31/23 21:31 85 100 12/31/23 21:30 36.5 C 18 12/31/23 21:26 79 100 12/31/23 21:21 67 100 12/31/23 21:16 61 100 12/31/23 21:11 79 100 12/31/23 21:06 69 100 12/31/23 21:01 89 100 12/31/23 20:56 72 100 12/31/23 20:53 18 12/31/23 20:53 55 L 113/66 12/31/23 20:51 67 100 12/31/23 20:46 81 100 12/31/23 20:43 63 123/66 12/31/23 20:41 73 100 12/31/23 20:36 65 100 12/31/23 20:31 69 100 12/31/23 20:26 73 100 12/31/23 20:23 36.5 C 18 12/31/23 20:23 36.5 C 18 12/31/23 20:21 73 100 12/31/23 20:16 75 99 12/31/23 20:15 80 133/69 12/31/23 20:13 18 12/31/23 20:11 73 100 12/31/23 20:06 71 99 12/31/23 20:04 72 147/66 H 12/31/23 20:03 18 12/31/23 20:01 70 100 12/31/23 19:56 76 99 12/31/23 19:55 85 127/70 12/31/23 19:53 18 12/31/23 19:51 101 H 99 12/31/23 19:46 85 99 12/31/23 19:45 76 124/77 12/31/23 19:43 18 12/31/23 19:41 70 98 12/31/23 19:38 78 110/64 12/31/23 19:36 70 98 12/31/23 19:33 18 12/31/23 19:31 75 96 12/31/23 19:26 68 98 12/31/23 19:25 74 93 12/31/23 19:23 36.5 C 18 12/31/23 19:21 79 100 12/31/23 19:20 70 106/58 L O2 Del Method 01/01/24 05:14 01/01/24 04:49 01/01/24 03:00 01/01/24 03:00 Room Air 01/01/24 02:30 01/01/24 01:15 01/01/24 00:45 12/31/23 23:15 12/31/23 22:15 12/31/23 22:15 12/31/23 21:36 12/31/23 21:31 12/31/23 21:30 12/31/23 21:26 12/31/23 21:21 12/31/23 21:16 12/31/23 21:11 12/31/23 21:06 12/31/23 21:01 12/31/23 20:56 12/31/23 20:53 12/31/23 20:53 12/31/23 20:51 12/31/23 20:46 12/31/23 20:43 12/31/23 20:41 12/31/23 20:36 12/31/23 20:31 12/31/23 20:26 12/31/23 20:23 12/31/23 20:23 12/31/23 20:21 12/31/23 20:16 12/31/23 20:15 12/31/23 20:13 12/31/23 20:11 12/31/23 20:06 12/31/23 20:04 12/31/23 20:03 12/31/23 20:01 12/31/23 19:56 12/31/23 19:55 12/31/23 19:53 12/31/23 19:51 12/31/23 19:46 12/31/23 19:45 12/31/23 19:43 12/31/23 19:41 12/31/23 19:38 12/31/23 19:36 12/31/23 19:33 12/31/23 19:31 12/31/23 19:26 12/31/23 19:25 12/31/23 19:23 12/31/23 19:21 12/31/23 19:20 Supervising Physician <Ivanna Clark, DO - Last Filed: 01/01/24 08:45> Co-Signing Physician Notes Resident Physician Supervision Note: I was present with Dr. Sofia during the history and exam. I discussed the case with the resident and agree with the findings and plan as documented in the note. Any exceptions or clarifications are listed here: POD1 doing well. Routine postop care. States blood sugar management with own pump is working well - 105 most recent blood sugar. Documented By: Ivanna Clark DO Resident Activity Tracking <Ben Sofia DO - Last Filed: 01/01/24 06:23> Resident Involvement: Resident Care Provided Care Provided: OB Delivery
[2024-01-01] MEDS: LEVOTHYROXINE SODIUM 200 MCG TABLET PO SCH (06:22)
[2024-01-01 06:39] LABS: Basophils # (auto) 0.02 K/uL (0.00-0.20); Basophils % (auto) 0.2 %; Eosinophils # (auto) 0.06 K/uL (0.00-0.50); Eosinophils % (auto) 0.7 %; Hematocrit (blood only) 24.1 % (37.0-47.0); Hemoglobin 7.1 g/dl (12.0-16.0); Immature Granulocytes # (auto) 0.06 K/uL (0.01-0.20); Immature Granulocytes % (auto) 0.7 %; Lymphocytes # (auto) 1.09 K/uL (1.20-3.40); Lymphocytes % (auto) 13.2 %; Mean Corpuscular Hemoglobin 21.1 pg (25.0-34.0); Mean Corpuscular Hgb Conc 29.5 g/dL (32.0-36.0); Mean Corpuscular Volume 71.5 fL (80.0-100.0); Mean Platelet Volume 11.7 fL (9.4-12.4); Monocytes # (auto) 0.62 K/uL (0.11-0.59); Monocytes % (auto) 7.5 %; Neutrophils # (auto) 6.43 K/uL (1.40-6.50); Neutrophils % (auto) 77.7 %; Platelet Count 193 K/uL (130-400); RDW Coefficient of Variation 15.9 % (11.5-14.5); Red Blood Count 3.37 M/uL (4.20-5.40); White Blood Count 8.28 K/ul (4.8-10.8)
[2024-01-01 07:19] LABS: Anisocytosis Present; Polychromasia 1+
[2024-01-01] MEDS: PRENATAL VITAMIN 1 TAB PO SCH (08:23)
[2024-01-01] MEDS: FERROUS SULFATE 325 MG TAB PO SCH (08:23)
[2024-01-01] MEDS ORDERED: diphenhydrAMINE Capsule 25 MG CAP PO PRN (12:47)
[2024-01-01] MEDS ORDERED: KETOROLAC 30 MG/ML VIAL IV PRN (12:47)
[2024-01-01] MEDS ORDERED: diphenhydrAMINE 50 MG/ML VIAL IV PRN (12:47)
[2024-01-01] MEDS ORDERED: PROMETHAZINE HCL 25 MG in SODIUM CHLORIDE 0.9% 50 ML IV PRN (12:47)
[2024-01-01] MEDS ORDERED: ONDANSETRON INJ 2 MG/ML 2 ML VIAL IV PRN (12:47)
[2024-01-01] MEDS: INSULIN, Rapid-Acting PUMP SC SCH (13:24)
[2024-01-01] MEDS: IBUPROFEN 600 MG TAB PO PRN (20:40)
[2024-01-01] MEDS: bisacodyL 5 MG TABEC PO SCH (20:40)
[2024-01-01] MEDS: oxyCODONE/ACETAMINOPHEN 5mg/325mg TAB PO PRN (20:54)
--- NOTE | 2024-01-02 07:17 | Obstetrical Progress Note ---
Date of Service <Ben Sofia DO - Last Filed: 01/02/24 07:47> January 02, 2024 Assessment & Plan <Ben Sofia DO - Last Filed: 01/02/24 07:47> (1) Encounter for assessment: Plan 33 y/o POD#2: Eating well, ambulating well, voiding well - not yet passing gas Vitals reviewed, WNL Pain well controlled with Percocet and Motrin Routine post-op care - OOB, ambulation, diet progression as tolerated Will need office visit for BP check in 3-5 days after discharge Will have 6 week follow up with Dr. Clark <Adela Chamberlain MD, FACOG - Last Filed: 01/02/24 07:54> (1) Encounter for assessment: Subjective <eBn Sofia DO - Last Filed: 01/02/24 07:47> Ambulation: ambulating normally Voiding: no voiding problems Passing Gas:: No Diet Tolerance:: regular diet Lochia:: Small Feeding Type:: breast feeding pain well controlled with Percocet and Motrin Review of Systems -Denies fever or chills -Denies dyspnea, chest pain, or palpitations -Denies dysuria -Denies headache or changes in vision Physical Exam <Ben Sofia DO - Last Filed: 01/02/24 07:47> General: Alert and oriented. No acute distress Cardiac: Regular rate and rhythm, no murmurs appreciated Respiratory: Lungs clear to auscultation bilaterally, No increased work of b reathing Abdominal: Soft, non-tender, non-distended. Bowel sounds present. Uterus: Uterine fundus firm, palpable below umbilicus. JENNY dressing in place. Extremities: No LE swelling appreciated, calves non-tender to palpation bilaterally Results & Data <Ben Sofia DO - Last Filed: 01/02/24 07:47> Vital Signs (Past 12 Hours) Vital Signs Temp Pulse Resp BP Pulse Ox O2 Del Method 01/02/24 00:00 36.5 C 80 18 148/78 H 97 Room Air 01/01/24 20:55 36.6 C 82 20 149/83 H 99 Room Air Supervising Physician <Adela Chamberlain MD, FACOG - Last Filed: 01/02/24 07:54> Co-Signing Physician Notes Resident Physician Supervision Note: I was present with Dr. Sofia during the history and exam. I discussed the case with the resident and agree with the findings and plan as documented in the note. Any exceptions or clarifications are listed here: stable, eating, voiding, ambul, no n/v. no flatus. abd soft ff 2 down nt, incision dressed with jenny. ext nt calves. pod #2 s/p c/s routine care. will need to watch bps, plan at least 3-5day bp check in office. Documented By: Adela Chamberlain MD, FACOG Resident Activity Tracking <Ben Sofia, DO - Last Filed: 01/02/24 07:47> Resident Involvement: Resident Care Provided Care Provided: OB Delivery
[2024-01-02 07:49] LABS: Hematocrit (blood only) 24.7 % (37.0-47.0); Hemoglobin 7.3 g/dl (12.0-16.0)
[2024-01-02] MEDS: INSULIN ASPART 100 UNITS/ML VIAL SC PRN (13:17)
[2024-01-02] MEDS ORDERED: bisacodyL 10 MG SUPP PR PRN (19:25)
--- NOTE | 2024-01-03 06:44 | Obstetrical Progress Note ---
Date of Service <Ben Sofia DO - Last Filed: 01/03/24 07:03> January 03, 2024 Assessment & Plan <Ben Sofia DO - Last Filed: 01/03/24 07:03> (1) Encounter for assessment: Plan 33 y/o POD#3: Eating well, ambulating well, voiding well Vitals reviewed, WNL - BP max in last 24 hours 138/85 Pain well controlled with Percocet and Motrin Routine post-op care - OOB, ambulation, diet progression as tolerated Will follow up next week in office for JENNY dressing removal + BP check Will have 6 week follow up with Dr. Clark <Rashmi Holguin MD, FACOG - Last Filed: 01/03/24 07:17> (1) Encounter for assessment: Subjective <Ben Sofia DO - Last Filed: 01/03/24 07:03> Ambulation: ambulating normally Voiding: no voiding problems Passing Gas:: Yes Diet Tolerance:: regular diet Lochia:: Small Feeding Type:: breast feeding pain well controlled with Percocet and Motrin Review of Systems -Denies fever or chills -Denies dyspnea, chest pain, or palpitations -Denies dysuria -Denies headache or changes in vision Physical Exam <Ben Sofia DO - Last Filed: 01/03/24 07:03> General: Alert and oriented. No acute distress Cardiac: Regular rate and rhythm, no murmurs appreciated Respiratory: Lungs clear to auscultation bilaterally, No increased work of breathing Abdominal: Soft, non-tender, non-distended. Bowel sounds present. Uterus: Uterine fundus firm, palpable below umbilicus. JENNY dressing in place. Extremities: No LE swelling appreciated, calves non-tender to palpation bilaterally Results & Data <Ben Sofia DO - Last Filed: 01/03/24 07:03> Vital Signs (Past 12 Hours) Vital Signs Temp Pulse Resp BP Pulse Ox O2 Del Method 01/02/24 22:55 36.6 C 74 18 129/80 97 Room Air 01/02/24 18:54 36.8 C 74 18 138/85 98 Room Air Supervising Physician <Rashmi Holguin MD, FACOG - Last Filed: 01/03/24 07:17> Co-Signing Physician Notes Resident Physician Supervision Note: I interviewed and examined the patient. Discussed with Dr. Sofia and agree with findings and plan as documented in the note. Any exceptions or clarifications are listed here: Ding well. Blood pressures wnl yesterday. Meeting all milestones, desires d/c. Instructions given. f/u in the office on for bp check and removal of JENNY dressing. Documented By: Rashmi Holguin MD, FACOG Resident Activity Tracking <Ben Sofia, DO - Last Filed: 01/03/24 07:03> Resident Involvement: Resident Care Provided Care Provided: OB Delivery
--- NOTE | 2024-01-05 17:16 | Discharge Summary ---
Date of Service January 05, 2024 Admission HPI Per Admitting Provider 33yo at 37w2d ega with cc of being sent from office with severe polyhydramnios in background history of pregestational DM. She was present for a preop visit with me for planned c/s on january 11 with history of prior c/s. She had dvp today at 18.9cm. Noted good fm. EFW at last check >98%. I called [facility] to discuss her case and they agree with indication for delivery now due to severe polyhydramnios with likely poorly controlled DM in . Patient was on monitor briefly and sent to . C c/b 1. AMA 2. DM 3. Severe polyhydramnios 4. Desires tubal sterilization with distal salpingectomies. PNL rhpos, ri, gbs neg [facility]: c/s x 2 [facility]: nl paps, no stds. Discharge Data Consultations 12/31/23 12:29 Consult Anesthesiology Stat Procedures Performed Operation Date: 01/12/24 07:30 section Hospital Course (1) Encounter for assessment: Plan 33 y/o POD#3: Eating well, ambulating well, voiding well Vitals reviewed, WNL - BP max in last 24 hours 138/85 Pain well controlled with Percocet and Motrin Routine post-op care - OOB, ambulation, diet progression as tolerated Will follow up next week in office for JENNY dressing removal + BP check Will have 6 week follow up with Dr. Clark Coding Level of Care Code None Diagnoses Encounter for assessment Z39.2
== END 2024-01-03 12:35 | disposition home or self-care (01) | DRG 783 ==
LOC: 4S1 12:11 → 4E2 22:31 → EDSTATUS 01-12 10:15
DX: O36.63X0 Maternal care for excessive fetal growth, third trimester, not applicable or unspecified; E03.9 Hypothyroidism, unspecified; O34.211 Maternal care for low transverse scar from previous cesarean delivery; E66.9 Obesity, unspecified; Z30.2 Encounter for sterilization; Z96.41 Presence of insulin pump (external) (internal); O24.02 Pre-existing type 1 diabetes mellitus, in childbirth; O40.3XX0 Polyhydramnios, third trimester, not applicable or unspecified; O99.284 Endocrine, nutritional and metabolic diseases complicating childbirth; O99.214 Obesity complicating childbirth; Z37.0 Single live birth; Z3A.37 37 weeks gestation of pregnancy